=== PATIENT | female | born 1990 ===

== ENCOUNTER 2023-07-01 13:02 | Inpatient (IN) | payer OTHER, SELFPAY ==
--- NOTE | ~2023-07-01 | CT_ITS ---
EXAMINATION: CT HEAD WITHOUT CONTRAST CLINICAL INFORMATION: Change in mental status. COMPARISON: None available. TECHNIQUE: Contiguous axial imaging was performed from the skull base to vertex without intravenous administration of contrast. This CT examination was performed using dose optimization techniques as appropriate, variously including the following: *Automated exposure control *Adjustment of mA and/or kV according to patient size (this includes techniques or standardized protocols for targeted exams where dose is matched to indication/reason for exam; i.e. extremities or head) *Use of iterative reconstruction technique DLP: 646 mGy-cm FINDINGS: There is no acute intracranial hemorrhage. There is no evidence of acute/subacute cerebral or cerebellar infarction. There is no midline shift or mass effect. No extra-axial fluid collection. The orbits are symmetric and within normal limits. The mastoid air cells are clear. The visualized paranasal sinuses are well aerated. CT/CT head/brain wo IV con IMPRESSION: No acute intracranial pathology.
[2023-07-01 13:18] VITALS: BP 110/80; BP 118/90; PULSE 117; PULSE 86; RESP 16; TEMP 36.8; O2SAT 100; O2SAT 98; BMI 25.4
--- NOTE | 2023-07-01 13:25 | ECG_ITS ---
Test Reason : WEAKNESS Blood Pressure : / mmHG Vent. Rate : 110 BPM Atrial Rate : 110 BPM P-R Int : 150 ms QRS Dur : 072 ms QT Int : 296 ms P-R-T Axes : 070 076 040 degrees QTc Int : 400 ms Sinus tachycardia Low voltage QRS Nonspecific T wave abnormality Abnormal ECG No previous ECGs available Referred By: Gely Rubi Electronically Signed By:Román Fuller
--- NOTE | 2023-07-01 13:36 | ED_ITS ---
HPI - General Adult General Chief complaint: General Medical Stated complaint: NOT EATING FROM [facility],SEC 21 PER EMS Time Seen by Provider: 07/01/23 13:06 Source: patient, EMS and other Mode of arrival: EMS Limitations: other (very poor historian) History of Present Illness ED Provider: IVELISSE HPI narrative: 32 yo female with PMH of opiate use disorder, bipolar, ADHD, hypothyroidism from [place] has been there for about 1 year she is not a good historian is very agitated and keeps saying I don't know what you're asking me. Most of history from staff at bedside or notes. It looks like she has been hospitalized for the past 5 years and now is at [place] the notes state she is more wobbly with gait disturbances, agitated, not eating and drinking FTT for the past month but now tremors for the past week. There was a mention on 06/17 about med changes but unsure what medications she is using. She keeps asking for water on arrival. I asked staff if she was over drinking water and the staff note they have to push her to eat and drink at baseline. No AM medications this time. MD complaint: tremors, FTT, weakness, gait issues Onset (ago): week(s) (2+) Radiation: non-radiation Severity: moderate Quality: other Relieving factors: rest Exacerbating factors: movement Associated symptoms: other (not at baseline - withdrawn, agitation, poor PO intake) Treatments prior to arrival: none Related Data Allergies Allergy/AdvReac Type Severity Reaction Status Date / Time No Known Allergies Allergy Verified 07/01/23 13:21 Review of Systems 2 Review of Systems: ROS unable to be obtained due to altered mental status [facility] Past Medical History Source: old records reviewed Medical History ADHD Anemia FTT (failure to thrive) in adult Hypothyroidism Opiate use Bipolar 1 disorder Social History Social History (Updated 07/01/23 @ 13:38 by Gely Rubi DO) Alcohol intake: never Patient Tobacco Use Status: Former Tobacco user Smoked in Last 30 Days: No Advance Directives: No Advance Directives Information Provided: No Do you have a plan to hurt others: No Plan Patient : No Physical Exam ED Vital Signs: Vital Signs - 24 hr 07/01/23 13:18 Temperature 98.3 F Pulse Rate 117 H Respiratory Rate 16 Blood Pressure 118/90 H Pulse Oximetry 100 Oxygen Delivery Method Room Air BMI result Body Mass Index 25.4 Appearance: Alert. confused knows who she is and that she is at the hospital but keeps saying she doesn't understand. Mild acute distress. Eyes: Pupils equal, round and reactive to light. 5mm dilated ENT: Pharynx dry MM tongue fasciculations noted Neck: Normal inspection. Neck supple. CVS: tachycardic heart rate and rhythm. Pulses normal. Respiratory: No respiratory distress. Breath sounds normal. Abdomen: Soft and nontender. Skin: Skin warm and dry. pale skin color. Normal skin turgor. Extremities: No lower extremity edema. Neuro: moves all extremities, mild hyperreflexia, has 3 beat clonus in both legs, alert and oriented x 2 but very hard to follow and she is agitated Course Course Course Narrative: tongue fasciculations mild now tremors gone in hands after IV ativan less agitated Reevaluation(s) Reevaluation #1: per psychiatrist at [place] the patient's lithium was discharged and held as off 06/28 per psychiatrist but unsure why Dr. Saleem so if her lithium is 1.8 I am unsure what it was the last few weeks. Reevaluation #2: combination of medications that could cause serotonin syndrome together topiramate wellbutrin suboxone benadryl depakote seroquel Medications Administered Generic Name Dose Route Start Last Admin Trade Name Freq PRN Reason Stop Dose Admin Sodium Chloride 1,000 mls @ 125 mls/hr 07/01/23 15:00 07/01/23 15:45 Ns IVCONT 125 mls/hr .Q8H NOMAN Administration Discontinued Medications Generic Name Dose Route Start Last Admin Trade Name Freq PRN Reason Stop Dose Admin Sodium Chloride 1,000 mls @ 999 mls/hr 07/01/23 14:11 07/01/23 14:21 Ns IV 07/01/23 15:11 999 mls/hr .Q1H1M ONE Administration Lorazepam 1 mg 07/01/23 13:35 07/01/23 14:06 Lorazepam 2 Mg/Ml Vial IVPUSH 07/01/23 13:36 1 mg STAT STA Administration Medical Decision Making Medical Decision Making [facility] Narrative: 32 yo female with PMH of opiate use disorder, bipolar, ADHD, hypothyroidism here with worsening FTT and falls/behaviors changes and her clinical exam is concerning for autonomic agitation, clonus and change in mental status on multiple psychiatric meds the list that could cause serotonin syndrome together includes seroquel, wellbutrin, topiramate, suboxone, valproic acid. She needs labs, IV ativan, levels of lithium and depakote. I am going to start on fluids as well once I get her Na level back. CT head for any signs of intracranial mass ordered Differential Diagnosis Differential Diagnoses: The differential diagnosis associated with the presentation includes serotonin syndrome, dehydration, ICH, med reaction, anticholinergic Admission/Observation Consideration of admission/observation: Escalation of care including admission/observation considered pending repeat lithium level may need admission and CT head signed out to Dr. Tompkins repeat IV ativan ordered Consult Healthcare Provider Management of the patient was discussed with: Hospitalist (Dr. Paz states they will admit) and Special Education Director poison control repeat level in 2 hours then again in 4 hours for downward trend IVF maint ordered PRN ativan reassess Lab Data [facility] Lab Attestation statement: I reviewed the patient's lab results. 07/01/23 13:41 07/01/23 13:41 Labs: Lab Results 07/01/23 Range/Units 13:41 WBC 5.4 (4.8-10.8) X10*3/uL RBC 3.37 L (4.20-5.50) X10*6/uL Hgb 10.8 L (12.0-16.0) g/dl Hct 31.9 L (37.0-47.0) % MCV 94.7 (80.0-98.0) fL MCH 32.0 (27.0-33.0) pg MCHC 33.9 (31.0-35.0) g/dl RDW 13.7 (11.0-16.0) % Plt Count 199 (160-400) X10*3/uL MPV 9.0 L (9.4-12.3) fL Immature Gran % (Auto) 1.1 H (0.0-0.4) % Neut % (Auto) 59.5 (45-73) % Lymph % (Auto) 19.9 L (20-40) % [place] % (Auto) 18.7 H (2-11) % Eos % (Auto) 0.6 (0-4) % Baso % (Auto) 0.2 (0-2) % Lymph # (Auto) 1.1 L (1.2-4.9) X10*3/uL [place] # (Auto) 1.0 (0.1-1.2) X10*3/uL Eos # (Auto) 0.0 (0.0-0.4) X10*3/uL Baso # (Auto) 0.0 (0.0-0.2) X10*3/uL Abs Immat Gran (auto) 0.06 H (0.00-0.03) X10*3/uL Absolute Neuts (auto) 3.2 (2.0-8.3) x10*3/uL Absolute Nucleated RBC 0.000 (0.0-0.012) X10*3/uL Nucleated RBC % (auto) 0.0 (0.0-0.2) /100WBC Sodium 136 (135-145) mmol/L Potassium 3.7 (3.3-5.1) mmol/L Chloride 103 (96-108) mmol/L Carbon Dioxide 27 (22-29) mmol/L Anion Gap 10 L (12-20) BUN 29 H (9-16) mg/dL Creatinine 0.77 (0.5-1.4) mg/dL Estim Creat Clear Calc 79.2 Estimated GFR > 60 Random Glucose 108 (60-115) mg/dL Calcium 9.5 (8.4-10.2) mg/dL Magnesium 2.1 (1.6-2.6) mg/dL Total Bilirubin 0.4 (0.0-1.0) mg/dL Direct Bilirubin 0.2 (0.0-0.5) mg/dL AST 25 (5-31) U/L ALT 16 (0-31) U/L Alkaline Phosphatase 78 (39-117) U/L Total Protein 5.7 L (6.5-8.0) g/dL Albumin 3.2 L (3.5-5.0) g/dL Lipase < 4 L (8-78) U/L TSH 1.51 (0.32-4.0) uIU/mL Beta HCG, Quant < 2 mIU/mL Valproic Acid 90.0 (50.0-100.0) mcg/mL [place] 1.80 H* (0.60-1.20) mmol/L Independent Interpretation I performed an independent interpretation of an: EKG and CT Scan (normal no acute findings) Interpretation: Rate: 110 Rhythm: sinus tachycardia [place]: normal Normal P waves. Normal JAREN. Normal QRS complex. ST T wave : no BRANDY, inverted t waves V1-V2 qTC: 400 prior studies: no prior The study has been interpreted contemporaneously by me. . Radiology Impression Discussion of test interpretation with radiology: I have reviewed the radiologist's reading. Independent Historian Clinical information obtained from an independent historian. History obtained from or confirmed by: Other ([facility]) External Record Review External record reviewed: Outpatient record Critical Care Time Critical Care Time Critical Care Time: Yes Total Critical Care Time: 60 Attestation: review of records, IVF, ativan IV x 2 for presumed serotonin syndrome, admission, poison control call I attest to this time spent taking care of the patient Discharge Plan Discharge Clinical Impression: Resting tremor, Elevated lithium level, Adverse reaction to drug, Serotonin syndrome Patient Disposition: Admitted As Inpatient Print Language: Turkmen
[2023-07-01 13:47] LABS: MANUAL DIFF FLAG NO
[2023-07-01 13:49] LABS: Basophils Percent Auto 0.2 % (0-2); Eosinophils Percent Auto 0.6 % (0-4); Hematocrit 31.9 % (37.0-47.0); Hemoglobin 10.8 g/dl (12.0-16.0); Imm Gran Abs Auto 0.06 X10*3/uL (0.00-0.03); Imm Gran Pct Auto 1.1 % (0.0-0.4); Lymphocytes Absolute Auto 1.1 X10*3/uL (1.2-4.9); Lymphocytes Percent Auto 19.9 % (20-40); Mean Corpuscular HGB Conc 33.9 g/dl (31.0-35.0); Mean Corpuscular Volume 94.7 fL (80.0-98.0); Monocytes Percent Auto 18.7 % (2-11); Neutrophils Absolute Auto 3.2 x10*3/uL (2.0-8.3); Neutrophils Percent Auto 59.5 % (45-73); Platelet Count 199 X10*3/uL (160-400); Red Blood Count 3.37 X10*6/uL (4.20-5.50); Red Cell Distribution Width 13.7 % (11.0-16.0); White Blood Count 5.4 X10*3/uL (4.8-10.8)
[2023-07-01] MEDS: LORazepam 2 MG/ML VIAL 1 MG IVPUSH ×2 (14:06→16:29)
[2023-07-01 14:14] LABS: Alanine Aminotransferase 16 U/L (0-31); Albumin Level 3.2 g/dL (3.5-5.0); Alkaline Phosphatase 78 U/L (39-117); Anion Gap 10 (12-20); Aspartate Amino Transferase 25 U/L (5-31); Bilirubin Direct 0.2 mg/dL (0.0-0.5); Bilirubin Total 0.4 mg/dL (0.0-1.0); Blood Urea Nitrogen 29 mg/dL (9-16); Calcium 9.5 mg/dL (8.4-10.2); Carbon Dioxide 27 mmol/L (22-29); Chloride 103 mmol/L (96-108); Creatinine Clr Calc Pharmacy 79.2; Estimated Glomerular Filt Rate > 60; Glucose Random 108 mg/dL (60-115); Lipase < 4 U/L (8-78); Magnesium 2.1 mg/dL (1.6-2.6); Potassium 3.7 mmol/L (3.3-5.1); Sodium 136 mmol/L (135-145); Total Protein 5.7 g/dL (6.5-8.0)
[2023-07-01] MEDS: 0.9 % Sodium Chloride 1,000 ML 999 ML IV (14:21)
--- NOTE | 2023-07-01 14:25 | PC.NURSE ---
Critical [place] 1.8 rec, MD Rubi notified, pt medicated per MAR 1l IVF infusing per order. pt changed into hospital attire, resting quietly at this time 1:1 from [place] at bedside.
[2023-07-01 14:26] LABS: HCG Quantitative < 2 mIU/mL; TSH reflex Free T4 1.51 uIU/mL (0.32-4.0)
--- NOTE | 2023-07-01 14:48 | PC.NURSE ---
spoke with Rosa Maria at Poison Control, advised of critical lithium level of 1.8 recommendations are as follows: 1.) after initial fluid bolus, continue maintenance fluids at 1-1.5x the initial bolus 2.) repeat lithium level in 2 hours then every 2-4 hours until level is therapeutic Per Rosa Maria unless this is a recent adjustment in medication, increased lithium may be related to dehydration if PO intake has indeed been poor for the last month. Poison control will call to follow up on case. Spoke with nurse Oswald at [facility]: [phone], updated on pt status. MD Rubi advised
[2023-07-01] MEDS: 0.9 % Sodium Chloride 1,000 ML 125 ML IVCONT (15:45)
--- NOTE | 2023-07-01 16:11 | PC.NURSE ---
spoke with Dr. Payton psych provider from [place], advised of lithium level. stated that [place] level 1.8. sts that [place] was d/c'd on 06/28, sts that it was dc'd due pt poor po intake , and weight loss, stated that it was not therapeutic for pt. also sts that pt has been send out for OBGYN consults due to hx of HPV, as well as weight loss, intent was to rule out malignancy, however pt refuses exams. MD Rubi aware. advised of plan of care and poison control recommendations. Awaiting CT results, continuing fluids. sitter at bedside
[2023-07-01 16:13] LABS: Ammonia 19 umol/L (13-55)
[2023-07-01 16:33] LABS: Lithium 1.67 mmol/L (0.60-1.20)
--- NOTE | 2023-07-01 17:02 | PC.NURSE ---
spoke with pt mother sacha [phone] requests to speak with pt once she is awake
--- NOTE | 2023-07-01 17:03 | P.CNPS_ITS ---
History of Present Illness Date of Service: 07/01/2023 Chief Complaint: Filer toxicity Discussed with referring provider: Yes Sources of Information: patient interviewed, chart reviewed and crisis/core team assessment reviewed HPI Narrative: Ms. Sherman is a 32 year-old woman with hx of schizoaffective disorder, BPD, opiod use disorder who was was sent from [facility] psychiatric unit [facility] due to tremors, unsteady gait. In the ED, lithium level 1.80, hours after down to 1.67. CBC with normocytic anemia, no leukocytocis. CMP with no electrolyte imbalances. BUN slightly elevated 29, Cr 0.77, creatinine clearance 77. TSH 1.51. EKG tachycardia, low voltage QRS, non specific T wave abnormality. Pt also on depakote- depakote level 90, ammonia level 19. Pt on several psychotropic medication, but note that she is NOT on serotonergic agents. In addition, pt is on suboxone, wellbutrin, paliperidone, seroquel, thorazine. On exam- pt presents as anxious, asking to help her. when asked in what way she needs help she states I'm cold. Visible shock-like movement in appear extremities. On exam she does seem to have mild myoclonic movement. No pipe rigidity noted. No cogwheel. Pt is with staff from [facility] who has know pt for several months, who reports pt at baseline tends to be anxious but shakiness has worsened in past week, and her gait is more unsteady. mentation pickett, staff reports pt appears close to her baseline which seems to be limited. Will obtain more collateral information from her treating psychiatrist at [facility] Dr. Saleem. Note that pt has been at [facility] ([facility] psych unit) for several months, has a bed there and once medically clear and stable, should return to their unit NOT ANY OTHER PSYCH UNIT. She also has a guardian and [place]. [facility] Medical History ADHD Anemia FTT (failure to thrive) in adult Hypothyroidism Opiate use Bipolar 1 disorder Diagnostics Vital Signs (24Hr): Vital Signs - 24 hr 07/01/23 13:18 Temperature 98.3 F Pulse Rate 117 H Respiratory Rate 16 Blood Pressure 118/90 H Pulse Oximetry 100 Oxygen Delivery Method Room Air BMI result Body Mass Index 25.4 Labs 07/01/23 13:41 07/01/23 13:41 Labs: Laboratory Results - last 48 hr 07/01/23 07/01/23 13:41 16:02 WBC 5.4 RBC 3.37 L Hgb 10.8 L Hct 31.9 L MCV 94.7 MCH 32.0 MCHC 33.9 RDW 13.7 Plt Count 199 MPV 9.0 L Immature Gran % (Auto) 1.1 H Neut % (Auto) 59.5 Lymph % (Auto) 19.9 L [place] % (Auto) 18.7 H Eos % (Auto) 0.6 Baso % (Auto) 0.2 Lymph # (Auto) 1.1 L [place] # (Auto) 1.0 Eos # (Auto) 0.0 Baso # (Auto) 0.0 Abs Immat Gran (auto) 0.06 H Absolute Neuts (auto) 3.2 Absolute Nucleated RBC 0.000 Nucleated RBC % (auto) 0.0 Sodium 136 Potassium 3.7 Chloride 103 Carbon Dioxide 27 Anion Gap 10 L BUN 29 H Creatinine 0.77 Estim Creat Clear Calc 79.2 Estimated GFR > 60 Random Glucose 108 Calcium 9.5 Magnesium 2.1 Total Bilirubin 0.4 Direct Bilirubin 0.2 AST 25 ALT 16 Alkaline Phosphatase 78 Ammonia 19 Total Protein 5.7 L Albumin 3.2 L Lipase < 4 L TSH 1.51 Beta HCG, Quant < 2 Valproic Acid 90.0 [place] 1.80 H* 1.67 H* Imaging Radiology Impressions: ITS Impressions Head CT 07/01/23 15:29 IMPRESSION: No acute intracranial pathology. Mental Status Exam Mental Status Exam Narrative: pt in bed, somewhat anxious but in no acute distress. She reports feeling cold and tired. visible clonus alert, oriented to place, month, year insight/judgment: limited x 2. Medications Medications Current Medications Sodium Chloride (Ns) 1,000 mls @ 125 mls/hr IVCONT .Q8H NOMAN Last Admin: 07/01/23 15:45 Dose: 125 mls/hr Allergies Allergies Allergy/AdvReac Type Severity Reaction Status Date / Time No Known Allergies Allergy Verified 07/01/23 13:21 Assessment & Plan Assessment & Plan (1) Filer toxicity: Status: Acute Code(s): T56.891A - Toxic effect of other metals, accidental (unintentional), initial encounter Plan Pt presents with myoclonic movements, unsteady gait. [place] level supratherapeutic. Apparently, lithium had been stopped 2-3 days prior to admission to ED- suspect much higher level. No hyperthermia, no rigidity nor cog wheel on exam. No elevation in WBC. despite BUN elevated, creatinine clearance 77, GAF>60. serial lithium levels/bmp have been ordered. Pt given IV fluids. No significant cardiac effects noted, no qtc prolongation nor bradycardia or arrythmias. No TSH abnormalities. Calcium is normal, may not need to check PTH (lithium mimics calcium and binds in calcium sensing receptors in parathyroid). PLAN 1. Continue suboxone to avoid opiod withdrawal symptoms. For now- safe to hold depakote, topamax, thorazine, seroquel and ambien. She did have per documentation from [facility]- paliperidone invega 234mg IM on 06/29. 2.continue to follow resolution of clonus, labs abnormalities (lithium level, renal function) Total time managing care of this patient today ____ minutes.
--- NOTE | 2023-07-01 17:08 | PC.NURSE ---
spoke with poison control advised of repeat [place] level of 1.67. Poison Control recommends the followin.)repeat in 2 hours, if level is still trending downward, recommend rechecking in 4 hours. 2.) continue maintenance fluids MD Tompkins notified
--- NOTE | 2023-07-01 17:41 | PHA.MEDREC ---
Pharmacy Consult ? Medication Reconciliation Pharmacy has completed the medication reconciliation using med list from [facility]. On list, chlorpromazine was entered in 3 times as 50 mg tablets tid prn, 50 ml IM q6h prn and 50 mg IM tid prn. Clonidine was entered as 0.1 mg q8h prn hypertension.
[2023-07-01 17:46] VITALS: BP 94/60; PULSE 94; RESP 20; TEMP 37.1; O2SAT 98
--- NOTE | 2023-07-01 18:09 | P.HPHOSP_ITS ---
History of Present Illness Date of Service: 07/01/23 <CLAUDIA Valverde - Last Filed: 07/01/23 19:29> Attending physician on admission: Lyudmila Paz <CLAUDIA Valverde - Last Filed: 07/01/23 19:29> Chief Complaint: AMS, agitation, ataxia <CLAUDIA Valverde - Last Filed: 07/01/23 19:29> Pt is a 32-year-old female with a PMH significant for?hypothyroidism, opiate use disorder, ADHD, and bipolar disorder who presents to the ED from [facility]?for evaluation unsteadiness on feet and tremors for the past week. Patient is somnolent and barely arousable at time of interview and exam, incapable of answering questions. HPI is thus obtained from [facility] staff who was at bedside and chart and provider review. Patient has apparently been in and out of psychiatric institutions for many years; has been hospitalized at [facility] for at least 1 year. 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 Has also been unsteady on her feet, and complaining on and off of lower abdominal pain. Unclear whether or not she has been experiencing nausea and vomiting. Patient apparently has severe attention seeking behaviors, and will act out if she feels she is not receiving enough attention. Apparently has been having difficulty eating and drinking past few days. Patient's lithium was held and d/c'd on 06/28. Psychiatry was consulted in the ED who felt patient was experiencing lithium toxicity rather than serotonin syndrome. In the ED pt was tachycardic up to 117 with slightly elevated BP of 118/90. No fever Labs were significant for H&H 10.8/31.9, BUN 29, total protein 5.7, albumin 3.2, and initial lithium dose 1.80 with repeat down trending to 1.67. CT?of head found no acute intracranial pathology. EKG demonstrated sinus tachycardia of 110 with nonspecific T-wave inversions in V1 and V2 without evidence of significant ST elevations or depressions. Pt was treated with lorazepam and IVF. Pt will be admitted to the hospital for treatment and further evaluation of lithium toxicity. <CLAUDIA Valverde - Last Filed: 07/01/23 19:29> Review of Systems 2 Review of Systems: Unable to obtain due to patient's mentation <CLAUDIA Valverde - Last Filed: 07/01/23 19:29> [facility] Medical History: Medical History ADHD Anemia FTT (failure to thrive) in adult Hypothyroidism Opiate use Bipolar 1 disorder <CLAUDIA Valverde - Last Filed: 07/01/23 19:29> Social History: Social History Alcohol intake: never Patient Tobacco Use Status: Former Tobacco user Smoked in Last 30 Days: No Advance Directives: No Advance Directives Information Provided: No Do you have a plan to hurt others: No Plan Patient : No <CLAUDIA Valverde - Last Filed: 07/01/23 19:29> Meds Allergies/Adverse reactions: Allergies Allergy/AdvReac Type Severity Reaction Status Date / Time No Known Allergies Allergy Verified 07/01/23 13:21 <CLAUDIA Valverde - Last Filed: 07/01/23 19:29> Active Medications: Current Medications Sodium Chloride (Ns) 1,000 mls @ 125 mls/hr IVCONT .Q8H NOMAN Last Admin: 07/01/23 15:45 Dose: 125 mls/hr <CLAUDIA Valverde - Last Filed: 07/01/23 19:29> Home medications: Home Medications ?Medication ?Instructions ?Recorded ?Confirmed ?Last Taken ?Type acetaminophen 325 mg tablet 650 mg PO Q6H PRN Pain, Mild 07/01/23 07/01/23 Unknown History aluminum-mag hydroxide-simethicone 30 ml PO Q6H PRN Heartburn 07/01/23 07/01/23 Unknown History 400 mg-400 mg-40 mg/5 mL oral susp (Mylanta Maximum Strength) benztropine 1 mg tablet 1 mg PO BID 07/01/23 07/01/23 Unknown History bisacodyl 10 mg rectal suppository 10 mg CA DAILY PRN Constipation 07/01/23 07/01/23 Unknown History bisacodyl 5 mg tablet,delayed 10 mg PO DAILY 07/01/23 07/01/23 Unknown History release buprenorphine 2 mg-naloxone 0.5 mg 1 film buccal DAILY 07/01/23 07/01/23 Unknown History sublingual film (Suboxone) buprenorphine 4 mg-naloxone 1 mg 1 film buccal BEDTIME 07/01/23 07/01/23 Unknown History sublingual film (Suboxone) bupropion HCl 150 mg 24 hr tablet, 150 mg PO DAILY 07/01/23 07/01/23 Unknown History extended release chlorpromazine 25 mg/mL injection 50 mg IM Q6H PRN Agitation 07/01/23 07/01/23 Unknown History solution chlorpromazine 25 mg/mL injection 50 mg IM TID PRN Agitation 07/01/23 07/01/23 Unknown History solution chlorpromazine 50 mg tablet 50 mg PO TID PRN Agitation 07/01/23 07/01/23 Unknown History clonazepam 1 mg tablet 1 mg PO DAILY 07/01/23 07/01/23 Unknown History clonidine HCl 0.1 mg tablet 0.1 mg PO Q8H PRN Hypertension 07/01/23 07/01/23 Unknown History diphenhydramine HCl 25 mg capsule 25 mg PO Q8H PRN Anxiety 07/01/23 07/01/23 Unknown History divalproex 500 mg tablet,delayed 1,000 mg PO BEDTIME 07/01/23 07/01/23 Unknown History release divalproex 500 mg tablet,delayed 500 mg PO QAM 07/01/23 07/01/23 Unknown History release ibuprofen 800 mg tablet 800 mg PO Q8H PRN Pain, Moderate 07/01/23 07/01/23 Unknown History levothyroxine 25 mcg tablet 25 mcg PO DAILY@0600 07/01/23 07/01/23 Unknown History melatonin 3 mg tablet 6 mg PO BEDTIME 07/01/23 07/01/23 Unknown History methylphenidate HCl 18 mg 18 mg PO DAILY 07/01/23 07/01/23 Unknown History tablet,extended release 24 hr multivitamin 1 tab PO DAILY 07/01/23 07/01/23 Unknown History nicotine (polacrilex) 4 mg gum 4 mg buccal Q2H PRN Smoking 07/01/23 07/01/23 Unknown History Cessation nicotine 21 mg/24 hr daily 1 patch transdermal DAILY 07/01/23 07/01/23 Unknown History transdermal patch paliperidone palmitate 234 mg/1.5 234 mg IM QMONTH 07/01/23 07/01/23 Unknown History mL intramuscular syringe phenazopyridine 200 mg tablet 200 mg PO TID PRN URINARY 07/01/23 07/01/23 Unknown History DISCOMFORT polyethylene glycol 3350 17 17 g PO DAILY PRN Constipation 07/01/23 07/01/23 Unknown History gram/dose oral powder quetiapine 100 mg tablet 100 mg PO BEDTIME PRN Insomnia 07/01/23 07/01/23 Unknown History quetiapine 50 mg tablet 50 mg PO BID 07/01/23 07/01/23 Unknown History topiramate 25 mg tablet 25 mg PO BID 07/01/23 07/01/23 Unknown History zolpidem 5 mg tablet 5 mg PO BEDTIME 07/01/23 07/01/23 Unknown History <CLAUDIA Valverde - Last Filed: 07/01/23 19:29> Physical Exam 2 Vital Signs and Narrative: Vital Signs: Last Vital Signs Temp 98.7 F 07/01/23 17:46 Pulse 94 07/01/23 17:46 Resp 20 07/01/23 17:46 BP 94/60 07/01/23 17:46 Pulse Ox 98 07/01/23 17:46 O2 Del Method Room Air 07/01/23 17:46 BMI result Body Mass Index 25.4 <CLAUDIA Valverde Last Filed: 07/01/23 19:29> General: Somnolent, arousable but not opening eyes and unable to answer questions, in no acute distress Resp: CTA bilaterally CVS: S1, S2, tachycardic, regular rhythm GI: +BS, NT, no distention Skin: Warm, dry Neuro: Cranial nerves II-XII grossly intact bilaterally. Motor grossly intact bilaterally Extremities: No edema <CLAUDIA Valverde - Last Filed: 07/01/23 19:29> Results Labs CBC and Chem 7: 07/01/23 13:41 07/01/23 13:41 <CLAUDIA aVlverde Last Filed: 07/01/23 19:29> Labs: Laboratory Results - last 24 hr 07/01/23 07/01/23 13:41 16:02 MCV 94.7 MCH 32.0 MCHC 33.9 RDW 13.7 Plt Count 199 MPV 9.0 L Immature Gran % (Auto) 1.1 H Neut % (Auto) 59.5 Lymph % (Auto) 19.9 L [place] % (Auto) 18.7 H Eos % (Auto) 0.6 Baso % (Auto) 0.2 Lymph # (Auto) 1.1 L [place] # (Auto) 1.0 Eos # (Auto) 0.0 Baso # (Auto) 0.0 Abs Immat Gran (auto) 0.06 H Absolute Neuts (auto) 3.2 Absolute Nucleated RBC 0.000 Nucleated RBC % (auto) 0.0 Anion Gap 10 L Estim Creat Clear Calc 79.2 Estimated GFR > 60 Random Glucose 108 Calcium 9.5 Magnesium 2.1 Total Bilirubin 0.4 Direct Bilirubin 0.2 AST 25 ALT 16 Alkaline Phosphatase 78 Ammonia 19 Total Protein 5.7 L Albumin 3.2 L Lipase < 4 L TSH 1.51 Beta HCG, Quant < 2 Valproic Acid 90.0 [place] 1.80 H* 1.67 H* <CLAUDIA Valverde - Last Filed: 07/01/23 19:29> Imaging Radiologist's Impressions: Impressions Head CT 07/01/23 15:29 IMPRESSION: No acute intracranial pathology. <CLAUDIA Valverde - Last Filed: 07/01/23 19:29> Assessment and Plan (1) Elevated lithium level: Status: Acute <CLAUDIA Valverde - Last Filed: 07/01/23 19:29> Pt is a 32-year-old female with a PMH significant for?hypothyroidism, opiate use disorder, ADHD, and bipolar disorder who presents to the ED from [facility]?for evaluation unsteadiness on feet and tremors for the past week. Pt was treated with lorazepam and IVF. Pt will be admitted to the hospital for treatment and further evaluation of lithium toxicity. Acute on chronic lithium toxicity Patient with tremors, ataxia, altered mental status [place] levels 1.8 at time of presentation with repeat 1.67 [place] stopped 2 days prior on 06/28 Will treat with aggressive IV hydration @150 mls/hr Hold Depakote Will recheck lithium levels at 22:00 Psychiatry consult Monitor on telemetry Mood disorder Hold lithium, Depakote Continue all other mood stabilizers Opiate use disorder Continue Suboxone Hypothyroidism Continue levothyroxine Full Code Attending:?Dr. Valdivia DVT Prophylaxis: Lovenox Pt will require a hospitalization of at least two nights for treatment of?acute on chronic lithium toxicity with aggressive IV F hydration, close monitoring of mentation, labs, and cardiac function. <CLAUDIA Valverde - Last Filed: 07/01/23 19:29> Pt is a 32-year-old female with a PMH significant for?hypothyroidism, opiate use disorder, ADHD, and bipolar disorder who presents to the ED from [facility]?for evaluation unsteadiness on feet and tremors for the past week. Pt was treated with lorazepam and IVF. Pt will be admitted to the hospital for treatment and further evaluation of lithium toxicity. Acute on chronic lithium toxicity Patient with tremors, ataxia, altered mental status [place] levels 1.8 at time of presentation with repeat 1.67 [place] stopped 2 days prior on 06/28 Will treat with aggressive IV hydration @150 mls/hr Hold Depakote Will recheck lithium levels in am Psychiatry consult Monitor on telemetry Mood disorder Hold lithium, Depakote Continue all other mood stabilizers Opiate use disorder Continue Suboxone Hypothyroidism Continue levothyroxine Full Code Attending:?Dr. Valdivia DVT Prophylaxis: Lovenox Pt will require a hospitalization of at least two nights for treatment of?acute on chronic lithium toxicity with aggressive IV F hydration, close monitoring of mentation, labs, and cardiac function. <Aries Valdivia MD - Last Filed: 07/01/23 19:30> Quality Stroke Does the patient have a stroke diagnosis?: No <CLAUDIA Valverde - Last Filed: 07/01/23 19:29> VTE Prior VTE?: No <CLAUDIA Valverde - Last Filed: 07/01/23 19:29> VTE Risk Level:: Medical - moderate - high <CLAUDIA Valverde - Last Filed: 07/01/23 19:29> VTE Device Contraindication: Treatment Not Indicated <CLAUDIA Valverde - Last Filed: 07/01/23 19:29> VTE Drug Contraindication: N/A - Med Ordered <CLAUDIA Valverde - Last Filed: 07/01/23 19:29>
--- NOTE | 2023-07-01 18:25 | PC.NURSE ---
CLAUDIA Valdes at bedside
--- NOTE | 2023-07-01 19:32 | MHC.EDTECH ---
Mother of Pt. would like an update. [phone]
[2023-07-01 21:14] LABS: Lithium 1.58 mmol/L (0.60-1.20)
[2023-07-01] MEDS: Enoxaparin Sodium 40 MG/0.4 ML SYRINGE SUBCUT (21:36)
[2023-07-01] MEDS: Benztropine Mesylate 1 MG TABLET PO (21:36)
[2023-07-01] MEDS: Buprenorphine/Naloxone 4/1 mg FILM 1 FILM BUCCAL (21:36)
[2023-07-01] MEDS: Topiramate 25 MG TABLET PO (21:36)
[2023-07-01] MEDS: Zolpidem Tartrate 5 MG TABLET PO (21:36)
[2023-07-01] MEDS: QUEtiapine Fumarate 50 MG TABLET PO (21:36)
--- NOTE | 2023-07-01 22:13 | MHC.EDTECH ---
Patient resting quietly. Respirations even and unlaborated.
--- NOTE | 2023-07-01 22:32 | PC.NURSE ---
This RN spoke with poison control at this time, poison control recommends NS to be running at 200ml/order, Dr. Valdivia made aware and states he will change the order. Patient is currently awake and resting on stretcher, when asked her name patient is not answering this RN and when asked where she is and what today is patient states she does not know. No tremors noted. Margret RN at [facility] states that patient typically presents alert and oriented, able to answer questions appropriately but states that at times her mental status does fluctuate.
--- NOTE | 2023-07-01 23:59 | PC.NURSE ---
pt pulled out IV. placed new iv in left ac
[2023-07-02] MEDS: 0.9 % Sodium Chloride 1,000 ML 200 ML IVCONT ×3 (00:58→20:25)
[2023-07-02 01:15] VITALS: BP 116/78; PULSE 100; RESP 16; TEMP 36.7; O2SAT 98
--- NOTE | 2023-07-02 02:16 | MHC.EDTECH ---
belongings in locker 11
[2023-07-02 03:45] LABS: Lithium 1.62 mmol/L (0.60-1.20)
--- NOTE | 2023-07-02 04:47 | PC.NURSE ---
this rn noted resting tremors. notified MD Valdivia and poison control. MD at bedside assessing PT . tremors not present during his physical assessment.
--- NOTE | 2023-07-02 05:09 | PC.NURSE ---
Notifie provider of pt lack or urine output. plan is to increase fluids to 250mls/hrs.
[2023-07-02 05:18] LABS: Lithium 1.49 mmol/L (0.60-1.20)
[2023-07-02] MEDS: 0.9 % Sodium Chloride 1,000 ML 250 ML IVCONT ×2 (05:58→09:54)
--- NOTE | 2023-07-02 06:18 | PC.NURSE ---
relations director/Sitter. noted pt to be tremorous en route to bathroom. Skip at bedside again. PT resting in bed no visible tremors, or clonus noted.
--- NOTE | 2023-07-02 06:19 | PM.EVENT ---
Event Note Date of Service: 07/02/23 Event Note: Talked to poison control. Will increase fluids to 250 cc an hour. Patient without resting tremor, clonus or nystagmus. Unknown baseline mentation Time Spent With Patient Time: Total time managing care of this patient today ____ minutes.
[2023-07-02 06:21] VITALS: BP 106/70; PULSE 98; RESP 12; TEMP 36.3; O2SAT 96
[2023-07-02 06:23] LABS: Appearance Urine Cloudy; Color Urine Dark Yellow; Glucose Urine UA Negative (Negative); Leukocyte Esterase Urine Moderate (2+) (Negative); Nitrite Urine Positive (Negative); Specific Gravity - Urine 1.025 (1.005-1.025); UMIC TRIGGER UACC YES; Urine Blood Negative (Negative); Urine Ketones 15 mg/dL (Negative); Urine Protein Trace mg/dL (Neg-Trace)
[2023-07-02 06:28] LABS: Bacteria Urine 4+ (None Seen); RBC Urine 0-2 /HPF (0-2); UACC Culture Trigger YES
[2023-07-02] MEDS: Levothyroxine Sodium 25 MCG TABLET PO (06:37)
--- NOTE | 2023-07-02 06:41 | PC.NURSE ---
notified DR. Valdivia that PT is tremorous when grabbing her arms, pt also shaking while hold water cup. Skip placed consult for renal for dialysis
[2023-07-02 07:52] VITALS: BP 117/85; PULSE 104; RESP 14; O2SAT 98
--- NOTE | 2023-07-02 08:55 | P.CONNP_ITS ---
History of Present Illness Reason for Consult Consult date: 07/02/23 Chief Complaint Chief complaint: [place] toxicity History of Present Illness Narrative: 32-year-old female with a PMH significant for?hypothyroidism, opiate use disorder, ADHD, and bipolar disorder presented to the ER from [facility]?for evaluation unsteadiness on feet and tremors for the past week. Patient is incapable of answering questions appropriately. Patient has apparently been in and out of psychiatric institutions for many years; has been hospitalized at [facility] for at least 1 year. 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 Has also been unsteady on her feet, and complaining on and off of lower abdominal pain. Unclear whether or not she has been experiencing nausea and vomiting. Patient apparently has severe attention seeking behaviors, and will act out if she feels she is not receiving enough attention. Apparently has been having difficulty eating and drinking past few days. Patient's lithium was held and d/c'd on 06/28. In the ED pt was tachycardic up to 117 with slightly elevated BP of 118/90. No fever Labs were significant for H&H 10.8/31.9, BUN 29, total protein 5.7, albumin 3.2, and initial lithium dose 1.80 with repeat down trending to 1.67. CT?of head found no acute intracranial pathology. EKG demonstrated sinus tachycardia of 110 with nonspecific T-wave inversions in V1 and V2 without evidence of significant ST elevations or depressions. Pt was treated with lorazepam and IVF. Pt was admitted to the hospital for treatment and further evaluation of lithium toxicity. Nephrology has been consulted to assist in her clinical care during her current hospital stay Review of Systems Review of Systems Yes Unobtainable due to mental condition [facility] Past Medical History Medical History ADHD Anemia FTT (failure to thrive) in adult Hypothyroidism Opiate use Bipolar 1 disorder Social History Social History Alcohol intake: never Patient Tobacco Use Status: Former Tobacco user Smoked in Last 30 Days: No Advance Directives: No Advance Directives Information Provided: No Do you have a plan to hurt others: No Plan Patient : No Meds Allergies Allergy/AdvReac Type Severity Reaction Status Date / Time No Known Allergies Allergy Verified 07/01/23 13:21 Active Medications: Current Medications Acetaminophen (Acetaminophen 325 Mg Tablet) 650 mg PO Q6H PRN PRN Reason: Pain, Mild (Pain Scale 1-3) Al Hydroxide/Mg Hydroxide (Magnesium Hydrox/Alum Hydrox 30 Ml Oral.Susp) 30 ml PO Q6H PRN PRN Reason: Heartburn Benztropine Mesylate (Benztropine Mesylate 1 Mg Tablet) 1 mg PO BID [facility] Last Admin: 07/01/23 21:36 Dose: 1 mg Bisacodyl (Bisacodyl 5 Mg Tablet.Dr) 10 mg PO DAILY [facility] Bisacodyl (Bisacodyl 10 Mg Supp.Rect) 10 mg [place] DAILY PRN PRN Reason: Constipation Buprenorphine/Naloxone (Buprenorphine/Naloxone 2/0.5mg Film) 1 film SUBLINGUAL DAILY [facility] Buprenorphine/Naloxone (Buprenorphine/Naloxone 4/1 Mg Film) 1 film BUCCAL BEDTIME [facility] Last Admin: 07/01/23 21:36 Dose: 1 film Bupropion HCl (Bupropion Hcl Xl 150 Mg Tab.Er.24h) 150 mg PO DAILY [facility] Chlorpromazine HCl (Chlorpromazine Hcl 25 Mg/Ml Ampul) 50 mg IM Q6H PRN PRN Reason: Agitation Chlorpromazine HCl (Chlorpromazine Hcl 25 Mg/Ml Ampul) 50 mg IM TID PRN PRN Reason: Agitation Chlorpromazine HCl (Chlorpromazine Hcl 25 Mg Tablet) 50 mg PO TID PRN PRN Reason: Agitation Clonazepam (Clonazepam 1 Mg Tablet) 1 mg PO DAILY [facility] Clonidine HCl (Clonidine Hcl 0.1 Mg Tablet) 0.1 mg PO Q8H PRN; Protocol PRN Reason: Hypertension Diphenhydramine HCl (Diphenhydramine Hcl 25 Mg Capsule) 25 mg PO Q8H PRN PRN Reason: Anxiety Enoxaparin Sodium (Enoxaparin Sodium 40 Mg/0.4 Ml Syringe) 40 mg SUBCUT Q24H [facility] Last Admin: 07/01/23 21:36 Dose: 40 mg Sodium Chloride (Ns) 1,000 mls @ 250 mls/hr IVCONT .Q4H [facility] Last Admin: 07/02/23 05:58 Dose: 250 mls/hr Levothyroxine Sodium (Levothyroxine Sodium 25 Mcg Tablet) 25 mcg PO DAILY@0600 [facility] Last Admin: 07/02/23 06:37 Dose: 25 mcg Lorazepam (Lorazepam 1 Mg Tablet) 1 mg PO Q6H PRN PRN Reason: anxiety/restlessness Multivitamins/Vitamin C (Multivitamin Tablet) 1 tab PO DAILY [facility] Nicotine (Nicotine 21 Mg Patch.Td24) 21 mg TRANSDERMA DAILY [facility] Nicotine Polacrilex (Nicotine Polacrilex 2 Mg Gum) 4 mg BUCCAL Q2H PRN PRN Reason: Smoking Cessation Non-Formulary Medication (Methylphenidate Hcl) 18 mg PO DAILY [facility] Phenazopyridine HCl (Phenazopyridine Hcl 200 Mg Tablet) 200 mg PO TID PRN PRN Reason: URINARY DISCOMFORT Polyethylene Glycol (Polyethylene Glycol 3350 17 Gm Powd.Pack) 17 gm PO DAILY PRN PRN Reason: Constipation Quetiapine Fumarate (Quetiapine Fumarate 50 Mg Tablet) 50 mg PO BID [facility] Last Admin: 07/01/23 21:36 Dose: 50 mg Quetiapine Fumarate (Quetiapine Fumarate 100 Mg Tablet) 100 mg PO BEDTIME PRN PRN Reason: Insomnia Sodium Chloride (0.9 % Sodium Chloride Flush 3 Ml Syringe) 3 ml IVFLUSH QSHIFT [facility] Last Admin: 07/02/23 03:19 Dose: Not Given Topiramate (Topiramate 25 Mg Tablet) 25 mg PO BID [facility] Last Admin: 07/01/23 21:36 Dose: 25 mg Zolpidem Tartrate (Zolpidem Tartrate 5 Mg Tablet) 5 mg PO BEDTIME [facility] Last Admin: 07/01/23 21:36 Dose: 5 mg Home Medications ?Medication ?Instructions ?Recorded ?Confirmed ?Last Taken ?Type acetaminophen 325 mg tablet 650 mg PO Q6H PRN Pain, Mild 07/01/23 07/01/23 Unknown History aluminum-mag hydroxide-simethicone 30 ml PO Q6H PRN Heartburn 07/01/23 07/01/23 Unknown History 400 mg-400 mg-40 mg/5 mL oral susp (Mylanta Maximum Strength) benztropine 1 mg tablet 1 mg PO BID 07/01/23 07/01/23 Unknown History bisacodyl 10 mg rectal suppository 10 mg [place] DAILY PRN Constipation 07/01/23 07/01/23 Unknown History bisacodyl 5 mg tablet,delayed 10 mg PO DAILY 07/01/23 07/01/23 Unknown History release buprenorphine 2 mg-naloxone 0.5 mg 1 film buccal DAILY 07/01/23 07/01/23 Unknown History sublingual film (Suboxone) buprenorphine 4 mg-naloxone 1 mg 1 film buccal BEDTIME 07/01/23 07/01/23 Unknown History sublingual film (Suboxone) bupropion HCl 150 mg 24 hr tablet, 150 mg PO DAILY 07/01/23 07/01/23 Unknown History extended release chlorpromazine 25 mg/mL injection 50 mg IM Q6H PRN Agitation 07/01/23 07/01/23 Unknown History solution chlorpromazine 25 mg/mL injection 50 mg IM TID PRN Agitation 07/01/23 07/01/23 Unknown History solution chlorpromazine 50 mg tablet 50 mg PO TID PRN Agitation 07/01/23 07/01/23 Unknown History clonazepam 1 mg tablet 1 mg PO DAILY 07/01/23 07/01/23 Unknown History clonidine HCl 0.1 mg tablet 0.1 mg PO Q8H PRN Hypertension 07/01/23 07/01/23 Unknown History diphenhydramine HCl 25 mg capsule 25 mg PO Q8H PRN Anxiety 07/01/23 07/01/23 Unknown History divalproex 500 mg tablet,delayed 1,000 mg PO BEDTIME 07/01/23 07/01/23 Unknown History release divalproex 500 mg tablet,delayed 500 mg PO QAM 07/01/23 07/01/23 Unknown History release ibuprofen 800 mg tablet 800 mg PO Q8H PRN Pain, Moderate 07/01/23 07/01/23 Unknown History levothyroxine 25 mcg tablet 25 mcg PO DAILY@0600 07/01/23 07/01/23 Unknown History melatonin 3 mg tablet 6 mg PO BEDTIME 07/01/23 07/01/23 Unknown History methylphenidate HCl 18 mg 18 mg PO DAILY 07/01/23 07/01/23 Unknown History tablet,extended release 24 hr multivitamin 1 tab PO DAILY 07/01/23 07/01/23 Unknown History nicotine (polacrilex) 4 mg gum 4 mg buccal Q2H PRN Smoking 07/01/23 07/01/23 Unknown History Cessation nicotine 21 mg/24 hr daily 1 patch transdermal DAILY 07/01/23 07/01/23 Unknown History transdermal patch paliperidone palmitate 234 mg/1.5 234 mg IM QMONTH 07/01/23 07/01/23 Unknown History mL intramuscular syringe phenazopyridine 200 mg tablet 200 mg PO TID PRN URINARY 07/01/23 07/01/23 Unknown History DISCOMFORT polyethylene glycol 3350 17 17 g PO DAILY PRN Constipation 07/01/23 07/01/23 Unknown History gram/dose oral powder quetiapine 100 mg tablet 100 mg PO BEDTIME PRN Insomnia 07/01/23 07/01/23 Unknown History quetiapine 50 mg tablet 50 mg PO BID 07/01/23 07/01/23 Unknown History topiramate 25 mg tablet 25 mg PO BID 07/01/23 07/01/23 Unknown History zolpidem 5 mg tablet 5 mg PO BEDTIME 07/01/23 07/01/23 Unknown History Physical Exam Vital Signs: Last Vital Signs Temp 97.4 F 07/02/23 06:21 Pulse 104 H 07/02/23 07:52 Resp 14 07/02/23 07:52 BP 117/85 07/02/23 07:52 Pulse Ox 98 07/02/23 07:52 O2 Del Method Room Air 07/02/23 07:52 BMI result Body Mass Index 25.4 Const General: no acute distress Neck Neck: Yes supple Resp Auscultation: diminished lung sounds Cardio Rate: regular rate GI Palpation (GI): Soft to palpation Neuro General: moves all extremities Results Lab Results 07/01/23 13:41 07/01/23 13:41 Lab results: Chemistry 07/01/23 13:41 Sodium 136 Potassium 3.7 Carbon Dioxide 27 BUN 29 H Creatinine 0.77 Calcium 9.5 Hematology 07/01/23 13:41 WBC 5.4 Hgb 10.8 L Plt Count 199 Urinalysis 07/02/23 06:15 Urine Color Dark Yellow Urine Appearance Cloudy Urine pH 6.0 Ur Specific [place] 1.025 Urine Protein Trace Urine Glucose (UA) Negative Urine Ketones 15 Urine Blood Negative Urine Nitrite Positive H Ur Leukocyte Esterase Moderate (2+) H Urine RBC 0-2 Urine WBC 11-20 H Ur Squamous Epith Cells 11-20 Hyaline Casts 3-5 Assessment and Plan (1) Tamms toxicity: Qualifiers: Encounter type: sequela Injury intent: accidental or unintentional Q ualified Code(s): T56.891S - Toxic effect of other metals, accidental (unintentional), sequela Status: Acute Plan Renal functions normal; Electrolytes acceptable Serum lithium improving; NO indication for HD now C/W IV fluids and supportive care for now; Shall F/U Procedures Date of Service Date of Service: 07/02/23
--- NOTE | 2023-07-02 09:42 | PM.PSYCN ---
History of Present Illness Date of Service: 07/03/2023 Chief Complaint: [place] toxicity Discussed with referring provider: Yes Sources of Information: patient interviewed, chart reviewed and crisis/core team assessment reviewed HPI Narrative: Interim Hx: pt somewhat somnolent this morning. She appears to have less myoclonus. She reports feeling tired. However, exam limited as pt kept closing her eyes- to better assess mentation and possible increase confusion due to lithium toxicity. Note that even after lithium levels have normalized other neurological symptoms may remained and may take longer to fully resolved. Today, lithium level 1.42, continued lithium level check every 4-6 hrs. [facility] Medical History ADHD Anemia FTT (failure to thrive) in adult Hypothyroidism Opiate use Bipolar 1 disorder Diagnostics Vital Signs (24Hr): Vital Signs - 24 hr 07/01/23 13:18 07/01/23 17:46 07/02/23 01:15 Temperature 98.3 F 98.7 F 98.1 F Pulse Rate 117 H 94 100 Respiratory Rate 16 20 16 Blood Pressure 118/90 H 94/60 116/78 Pulse Oximetry 100 98 98 Oxygen Delivery Method Room Air Room Air Room Air 07/02/23 06:21 07/02/23 07:52 Temperature 97.4 F Pulse Rate 98 104 H Respiratory Rate 12 14 Blood Pressure 106/70 117/85 Pulse Oximetry 96 98 Oxygen Delivery Method Room Air Room Air BMI result Body Mass Index 25.4 Labs 07/01/23 13:41 07/03/23 05:49 Labs: Laboratory Results - last 48 hr 07/01/23 07/01/23 07/01/23 13:41 16:02 20:46 WBC 5.4 RBC 3.37 L Hgb 10.8 L Hct 31.9 L MCV 94.7 MCH 32.0 MCHC 33.9 RDW 13.7 Plt Count 199 MPV 9.0 L Immature Gran % (Auto) 1.1 H Neut % (Auto) 59.5 Lymph % (Auto) 19.9 L [place] % (Auto) 18.7 H Eos % (Auto) 0.6 Baso % (Auto) 0.2 Lymph # (Auto) 1.1 L [place] # (Auto) 1.0 Eos # (Auto) 0.0 Baso # (Auto) 0.0 Abs Immat Gran (auto) 0.06 H Absolute Neuts (auto) 3.2 Absolute Nucleated RBC 0.000 Nucleated RBC % (auto) 0.0 Sodium 136 Potassium 3.7 Chloride 103 Carbon Dioxide 27 Anion Gap 10 L BUN 29 H Creatinine 0.77 Estim Creat Clear Calc 79.2 Estimated GFR > 60 Random Glucose 108 Calcium 9.5 Magnesium 2.1 Total Bilirubin 0.4 Direct Bilirubin 0.2 AST 25 ALT 16 Alkaline Phosphatase 78 Ammonia 19 Total Protein 5.7 L Albumin 3.2 L Lipase < 4 L TSH 1.51 Beta HCG, Quant < 2 Urine Color Urine Appearance Urine pH Ur Specific [place] Urine Protein Urine Glucose (UA) Urine Ketones Urine Blood Urine Nitrite Ur Leukocyte Esterase Urine RBC Urine WBC Ur Squamous Epith Cells Urine Bacteria Hyaline Casts Valproic Acid 90.0 [place] 1.80 H* 1.67 H* 1.58 H* 07/02/23 07/02/23 07/02/23 01:49 04:58 06:15 WBC RBC Hgb Hct MCV MCH MCHC RDW Plt Count MPV Immature Gran % (Auto) Neut % (Auto) Lymph % (Auto) [place] % (Auto) Eos % (Auto) Baso % (Auto) Lymph # (Auto) [place] # (Auto) Eos # (Auto) Baso # (Auto) Abs Immat Gran (auto) Absolute Neuts (auto) Absolute Nucleated RBC Nucleated RBC % (auto) Sodium Potassium Chloride Carbon Dioxide Anion Gap BUN Creatinine Estim Creat Clear Calc Estimated GFR Random Glucose Calcium Magnesium Total Bilirubin Direct Bilirubin AST ALT Alkaline Phosphatase Ammonia Total Protein Albumin Lipase TSH Beta HCG, Quant Urine Color Dark Yellow Urine Appearance Cloudy Urine pH 6.0 Ur Specific [place] 1.025 Urine Protein Trace Urine Glucose (UA) Negative Urine Ketones 15 Urine Blood Negative Urine Nitrite Positive H Ur Leukocyte Esterase Moderate (2+) H Urine RBC 0-2 Urine WBC 11-20 H Ur Squamous Epith Cells 11-20 Urine Bacteria 4+ Hyaline Casts 3-5 Valproic Acid [place] 1.62 H* 1.49 H 07/02/23 09:27 WBC RBC Hgb Hct MCV MCH MCHC RDW Plt Count MPV Immature Gran % (Auto) Neut % (Auto) Lymph % (Auto) [place] % (Auto) Eos % (Auto) Baso % (Auto) Lymph # (Auto) [place] # (Auto) Eos # (Auto) Baso # (Auto) Abs Immat Gran (auto) Absolute Neuts (auto) Absolute Nucleated RBC Nucleated RBC % (auto) Sodium Potassium Chloride Carbon Dioxide Anion Gap BUN Creatinine Estim Creat Clear Calc Estimated GFR Random Glucose Calcium Magnesium Total Bilirubin Direct Bilirubin AST ALT Alkaline Phosphatase Ammonia Total Protein Albumin Lipase TSH Beta HCG, Quant Urine Color Urine Appearance Urine pH Ur Specific [place] Urine Protein Urine Glucose (UA) Urine Ketones Urine Blood Urine Nitrite Ur Leukocyte Esterase Urine RBC Urine WBC Ur Squamous Epith Cells Urine Bacteria Hyaline Casts Valproic Acid [place] Cancelled Imaging Radiology Impressions: ITS Impressions Head CT 07/01/23 15:29 IMPRESSION: No acute intracranial pathology. Mental Status Exam Mental Status Exam Narrative: pt in bed, somewhat anxious but in no acute distress. She reports feeling cold and tired. visible clonus alert, oriented to place, month, year insight/judgment: limited x 2. Medications Medications Current Medications Acetaminophen (Acetaminophen 325 Mg Tablet) 650 mg PO Q6H PRN PRN Reason: Pain, Mild (Pain Scale 1-3) Al Hydroxide/Mg Hydroxide (Magnesium Hydrox/Alum Hydrox 30 Ml Oral.Susp) 30 ml PO Q6H PRN PRN Reason: Heartburn Benztropine Mesylate (Benztropine Mesylate 1 Mg Tablet) 1 mg PO BID [facility] Last Admin: 07/01/23 21:36 Dose: 1 mg Bisacodyl (Bisacodyl 5 Mg Tablet.Dr) 10 mg PO DAILY [facility] Bisacodyl (Bisacodyl 10 Mg Supp.Rect) 10 mg [place] DAILY PRN PRN Reason: Constipation Buprenorphine/Naloxone (Buprenorphine/Naloxone 2/0.5mg Film) 1 film SUBLINGUAL DAILY [facility] Buprenorphine/Naloxone (Buprenorphine/Naloxone 4/1 Mg Film) 1 film BUCCAL BEDTIME [facility] Last Admin: 07/01/23 21:36 Dose: 1 film Bupropion HCl (Bupropion Hcl Xl 150 Mg Tab.Er.24h) 150 mg PO DAILY [facility] Chlorpromazine HCl (Chlorpromazine Hcl 25 Mg/Ml Ampul) 50 mg IM Q6H PRN PRN Reason: Agitation Chlorpromazine HCl (Chlorpromazine Hcl 25 Mg/Ml Ampul) 50 mg IM TID PRN PRN Reason: Agitation Chlorpromazine HCl (Chlorpromazine Hcl 25 Mg Tablet) 50 mg PO TID PRN PRN Reason: Agitation Clonazepam (Clonazepam 1 Mg Tablet) 1 mg PO DAILY [facility] Clonidine HCl (Clonidine Hcl 0.1 Mg Tablet) 0.1 mg PO Q8H PRN; Protocol PRN Reason: Hypertension Diphenhydramine HCl (Diphenhydramine Hcl 25 Mg Capsule) 25 mg PO Q8H PRN PRN Reason: Anxiety Enoxaparin Sodium (Enoxaparin Sodium 40 Mg/0.4 Ml Syringe) 40 mg SUBCUT Q24H [facility] Last Admin: 07/01/23 21:36 Dose: 40 mg Sodium Chloride (Ns) 1,000 mls @ 250 mls/hr IVCONT .Q4H [facility] Last Admin: 07/02/23 05:58 Dose: 250 mls/hr Levothyroxine Sodium (Levothyroxine Sodium 25 Mcg Tablet) 25 mcg PO DAILY@0600 [facility] Last Admin: 07/02/23 06:37 Dose: 25 mcg Lorazepam (Lorazepam 1 Mg Tablet) 1 mg PO Q6H PRN PRN Reason: anxiety/restlessness Multivitamins/Vitamin C (Multivitamin Tablet) 1 tab PO DAILY [facility] Nicotine (Nicotine 21 Mg Patch.Td24) 21 mg TRANSDERMA DAILY [facility] Nicotine Polacrilex (Nicotine Polacrilex 2 Mg Gum) 4 mg BUCCAL Q2H PRN PRN Reason: Smoking Cessation Non-Formulary Medication (Methylphenidate Hcl) 18 mg PO DAILY [facility] Phenazopyridine HCl (Phenazopyridine Hcl 200 Mg Tablet) 200 mg PO TID PRN PRN Reason: URINARY DISCOMFORT Polyethylene Glycol (Polyethylene Glycol 3350 17 Gm Powd.Pack) 17 gm PO DAILY PRN PRN Reason: Constipation Quetiapine Fumarate (Quetiapine Fumarate 50 Mg Tablet) 50 mg PO BID [facility] Last Admin: 07/01/23 21:36 Dose: 50 mg Quetiapine Fumarate (Quetiapine Fumarate 100 Mg Tablet) 100 mg PO BEDTIME PRN PRN Reason: Insomnia Sodium Chloride (0.9 % Sodium Chloride Flush 3 Ml Syringe) 3 ml IVFLUSH QSHIFT [facility] Last Admin: 07/02/23 09:03 Dose: Not Given Topiramate (Topiramate 25 Mg Tablet) 25 mg PO BID [facility] Last Admin: 07/01/23 21:36 Dose: 25 mg Zolpidem Tartrate (Zolpidem Tartrate 5 Mg Tablet) 5 mg PO BEDTIME [facility] Last Admin: 07/01/23 21:36 Dose: 5 mg Allergies Allergies Allergy/AdvReac Type Severity Reaction Status Date / Time No Known Allergies Allergy Verified 07/01/23 13:21 Assessment & Plan Assessment & Plan (1) [place] toxicity: Qualifiers: Encounter type: sequela Injury intent: accidental or unintentional Qualified Code(s): T56.891S - Toxic effect of other metals, accidental (unintentional), sequela Status: Acute Code(s): T56.891A - Toxic effect of other metals, accidental (unintentional), initial encounter Plan Pt presents with myoclonic movements, unsteady gait. [place] level supratherapeutic. Apparently, lithium had been stopped 2-3 days prior to admission to ED- suspect much higher level. No hyperthermia, no rigidity nor cog wheel on exam. No elevation in WBC. despite BUN elevated, creatinine clearance 77, GAF>60. serial lithium levels/bmp have been ordered. Pt given IV fluids. No significant cardiac effects noted, no qtc prolongation nor bradycardia or arrythmias. No TSH abnormalities. Calcium is normal, may not need to check PTH (lithium mimics calcium and binds in calcium-sensing receptors in parathyroid). PLAN 06/30 -Continue suboxone to avoid opiod withdrawal symptoms. For now- safe to hold depakote, topamax, thorazine, seroquel and ambien. She did have per documentation from [facility]- paliperidone invega 234mg IM on 06/29. -continue to follow resolution of clonus, labs abnormalities (lithium level, renal function) 07/01 [place] level down to 1.42. appears to have less myoclonus especially upper extremity. Keep in mind that neurological s/s of lithium toxicity may take longer to resolve even after lithium level has normalized. Psych to continue to follow. May also consider neurology consult. Total time managing care of this patient today ____ minutes.
[2023-07-02] MEDS: bisacodyL 5 MG TABLET.DR 10 MG PO (09:45)
[2023-07-02] MEDS: Buprenorphine/Naloxone 2/0.5mg FILM 1 FILM SUBLINGUAL (09:46)
[2023-07-02] MEDS: buPROPion HCl XL 150 MG TAB.ER.24H PO (09:46)
[2023-07-02] MEDS: Topiramate 25 MG TABLET PO (09:46)
[2023-07-02] MEDS: QUEtiapine Fumarate 50 MG TABLET PO (09:46)
[2023-07-02] MEDS: Benztropine Mesylate 1 MG TABLET PO ×2 (09:46→20:26)
[2023-07-02] MEDS: Multivitamin TABLET 1 TAB PO (09:46)
[2023-07-02] MEDS: clonazePAM 1 MG TABLET PO (09:46)
[2023-07-02] MEDS: Nicotine 21 MG PATCH.TD24 TRANSDERMA (09:47)
[2023-07-02 09:48] LABS: Lithium 1.38 mmol/L (0.60-1.20)
[2023-07-02 09:55] LABS: Anion Gap 5 (12-20); Blood Urea Nitrogen 22 mg/dL (9-16); Carbon Dioxide 27 mmol/L (22-29); Chloride 110 mmol/L (96-108); Creatinine Clr Calc Pharmacy 93.8; Estimated Glomerular Filt Rate > 60; Glucose Random 81 mg/dL (60-115); Potassium 3.7 mmol/L (3.3-5.1); Sodium 138 mmol/L (135-145)
[2023-07-02 10:08] LABS: Calcium 8.7 mg/dL (8.4-10.2)
[2023-07-02 11:15] VITALS: BP 115/80; PULSE 101; RESP 18; TEMP 36.3; O2SAT 100
--- NOTE | 2023-07-02 13:06 | PM.PSYCN ---
History of Present Illness Date of Service: 07/02/2023 Chief Complaint: [place] toxicity Reason for Consult: lithium toxicity Requesting physician: Kortney Jama Sources of Information: patient interviewed and chart reviewed Additional Sources of Information: nursing staff Review of Systems Review of Systems Unable to obtain due to patient's mentation Yes Unobtainable due to mental condition [facility] Medical History ADHD Anemia FTT (failure to thrive) in adult Hypothyroidism Opiate use Bipolar 1 disorder Diagnostics Vital Signs (24Hr): Vital Signs - 24 hr 07/01/23 13:18 07/01/23 17:46 07/02/23 01:15 Temperature 98.3 F 98.7 F 98.1 F Pulse Rate 117 H 94 100 Respiratory Rate 16 20 16 Blood Pressure 118/90 H 94/60 116/78 Pulse Oximetry 100 98 98 Oxygen Delivery Method Room Air Room Air Room Air 07/02/23 06:21 07/02/23 07:52 07/02/23 11:15 Temperature 97.4 F 97.3 F Pulse Rate 98 104 H 101 H Respiratory Rate 12 14 18 Blood Pressure 106/70 117/85 115/80 Pulse Oximetry 96 98 100 Oxygen Delivery Method Room Air Room Air BMI result Body Mass Index 25.4 Labs 07/01/23 13:41 07/02/23 09:27 Labs: Laboratory Results - last 48 hr 07/01/23 07/01/23 07/01/23 13:41 16:02 20:46 WBC 5.4 RBC 3.37 L Hgb 10.8 L Hct 31.9 L MCV 94.7 MCH 32.0 MCHC 33.9 RDW 13.7 Plt Count 199 MPV 9.0 L Immature Gran % (Auto) 1.1 H Neut % (Auto) 59.5 Lymph % (Auto) 19.9 L Rich % (Auto) 18.7 H Eos % (Auto) 0.6 Baso % (Auto) 0.2 Lymph # (Auto) 1.1 L Rich # (Auto) 1.0 Eos # (Auto) 0.0 Baso # (Auto) 0.0 Abs Immat Gran (auto) 0.06 H Absolute Neuts (auto) 3.2 Absolute Nucleated RBC 0.000 Nucleated RBC % (auto) 0.0 Sodium 136 Potassium 3.7 Chloride 103 Carbon Dioxide 27 Anion Gap 10 L BUN 29 H Creatinine 0.77 Estim Creat Clear Calc 79.2 Estimated GFR > 60 Random Glucose 108 Calcium 9.5 Magnesium 2.1 Total Bilirubin 0.4 Direct Bilirubin 0.2 AST 25 ALT 16 Alkaline Phosphatase 78 Ammonia 19 Total Creatine Kinase Total Protein 5.7 L Albumin 3.2 L Lipase < 4 L TSH 1.51 Beta HCG, Quant < 2 Urine Color Urine Appearance Urine pH Ur Specific [place] Urine Protein Urine Glucose (UA) Urine Ketones Urine Blood Urine Nitrite Ur Leukocyte Esterase Urine RBC Urine WBC Ur Squamous Epith Cells Urine Bacteria Hyaline Casts Valproic Acid 90.0 [place] 1.80 H* 1.67 H* 1.58 H* 07/02/23 07/02/23 07/02/23 01:49 04:58 06:15 WBC RBC Hgb Hct MCV MCH MCHC RDW Plt Count MPV Immature Gran % (Auto) Neut % (Auto) Lymph % (Auto) Rich % (Auto) Eos % (Auto) Baso % (Auto) Lymph # (Auto) Rich # (Auto) Eos # (Auto) Baso # (Auto) Abs Immat Gran (auto) Absolute Neuts (auto) Absolute Nucleated RBC Nucleated RBC % (auto) Sodium Potassium Chloride Carbon Dioxide Anion Gap BUN Creatinine Estim Creat Clear Calc Estimated GFR Random Glucose Calcium Magnesium Total Bilirubin Direct Bilirubin AST ALT Alkaline Phosphatase Ammonia Total Creatine Kinase Total Protein Albumin Lipase TSH Beta HCG, Quant Urine Color Dark Yellow Urine Appearance Cloudy Urine pH 6.0 Ur Specific [place] 1.025 Urine Protein Trace Urine Glucose (UA) Negative Urine Ketones 15 Urine Blood Negative Urine Nitrite Positive H Ur Leukocyte Esterase Moderate (2+) H Urine RBC 0-2 Urine WBC 11-20 H Ur Squamous Epith Cells 11-20 Urine Bacteria 4+ Hyaline Casts 3-5 Valproic Acid [place] 1.62 H* 1.49 H 07/02/23 07/02/23 09:27 09:27 WBC RBC Hgb Hct MCV MCH MCHC RDW Plt Count MPV Immature Gran % (Auto) Neut % (Auto) Lymph % (Auto) Rich % (Auto) Eos % (Auto) Baso % (Auto) Lymph # (Auto) Rich # (Auto) Eos # (Auto) Baso # (Auto) Abs Immat Gran (auto) Absolute Neuts (auto) Absolute Nucleated RBC Nucleated RBC % (auto) Sodium 138 Potassium 3.7 Chloride 110 H Carbon Dioxide 27 Anion Gap 5 L BUN 22 H Creatinine 0.65 Estim Creat Clear Calc 93.8 Estimated GFR > 60 Random Glucose 81 Calcium 8.7 D Magnesium Total Bilirubin Direct Bilirubin AST ALT Alkaline Phosphatase Ammonia Total Creatine Kinase 100 Total Protein Albumin Lipase TSH Beta HCG, Quant Urine Color Urine Appearance Urine pH Ur Specific [place] Urine Protein Urine Glucose (UA) Urine Ketones Urine Blood Urine Nitrite Ur Leukocyte Esterase Urine RBC Urine WBC Ur Squamous Epith Cells Urine Bacteria Hyaline Casts Valproic Acid [place] Cancelled 1.38 H Imaging Radiology Impressions: ITS Impressions Head CT 07/01/23 15:29 IMPRESSION: No acute intracranial pathology. Mental Status Exam Mental Status Exam Narrative: pt in bed, somewhat anxious but in no acute distress. She reports feeling cold and tired. visible clonus alert, oriented to place, month, year insight/judgment: limited x 2. Medications Medications Current Medications Acetaminophen (Acetaminophen 325 Mg Tablet) 650 mg PO Q6H PRN PRN Reason: Pain, Mild (Pain Scale 1-3) Al Hydroxide/Mg Hydroxide (Magnesium Hydrox/Alum Hydrox 30 Ml Oral.Susp) 30 ml PO Q6H PRN PRN Reason: Heartburn Benztropine Mesylate (Benztropine Mesylate 1 Mg Tablet) 1 mg PO BID [facility] Last Admin: 07/02/23 09:46 Dose: 1 mg Bisacodyl (Bisacodyl 5 Mg Tablet.Dr) 10 mg PO DAILY [facility] Last Admin: 07/02/23 09:45 Dose: 10 mg Bisacodyl (Bisacodyl 10 Mg Supp.Rect) 10 mg [place] DAILY PRN PRN Reason: Constipation Buprenorphine/Naloxone (Buprenorphine/Naloxone 2/0.5mg Film) 1 film SUBLINGUAL DAILY [facility] Last Admin: 07/02/23 09:46 Dose: 1 film Buprenorphine/Naloxone (Buprenorphine/Naloxone 4/1 Mg Film) 1 film BUCCAL BEDTIME [facility] Last Admin: 07/01/23 21:36 Dose: 1 film Bupropion HCl (Bupropion Hcl Xl 150 Mg Tab.Er.24h) 150 mg PO DAILY [facility] Last Admin: 07/02/23 09:46 Dose: 150 mg Chlorpromazine HCl (Chlorpromazine Hcl 25 Mg/Ml Ampul) 50 mg IM Q6H PRN PRN Reason: Agitation Chlorpromazine HCl (Chlorpromazine Hcl 25 Mg/Ml Ampul) 50 mg IM TID PRN PRN Reason: Agitation Chlorpromazine HCl (Chlorpromazine Hcl 25 Mg Tablet) 50 mg PO TID PRN PRN Reason: Agitation Clonazepam (Clonazepam 1 Mg Tablet) 1 mg PO DAILY [facility] Last Admin: 07/02/23 09:46 Dose: 1 mg Clonidine HCl (Clonidine Hcl 0.1 Mg Tablet) 0.1 mg PO Q8H PRN; Protocol PRN Reason: Hypertension Diphenhydramine HCl (Diphenhydramine Hcl 25 Mg Capsule) 25 mg PO Q8H PRN PRN Reason: Anxiety Enoxaparin Sodium (Enoxaparin Sodium 40 Mg/0.4 Ml Syringe) 40 mg SUBCUT Q24H [facility] Last Admin: 07/01/23 21:36 Dose: 40 mg Sodium Chloride (Ns) 1,000 mls @ 250 mls/hr IVCONT .Q4H [facility] Last Admin: 07/02/23 09:54 Dose: 250 mls/hr Levothyroxine Sodium (Levothyroxine Sodium 25 Mcg Tablet) 25 mcg PO DAILY@0600 [facility] Last Admin: 07/02/23 06:37 Dose: 25 mcg Lorazepam (Lorazepam 1 Mg Tablet) 1 mg PO Q6H PRN PRN Reason: anxiety/restlessness Multivitamins/Vitamin C (Multivitamin Tablet) 1 tab PO DAILY [facility] Last Admin: 07/02/23 09:46 Dose: 1 tab Nicotine (Nicotine 21 Mg Patch.Td24) 21 mg TRANSDERMA DAILY [facility] Last Admin: 07/02/23 09:47 Dose: 21 mg Nicotine Polacrilex (Nicotine Polacrilex 2 Mg Gum) 4 mg BUCCAL Q2H PRN PRN Reason: Smoking Cessation Non-Formulary Medication (Methylphenidate Hcl) 18 mg PO DAILY [facility] Phenazopyridine HCl (Phenazopyridine Hcl 200 Mg Tablet) 200 mg PO TID PRN PRN Reason: URINARY DISCOMFORT Polyethylene Glycol (Polyethylene Glycol 3350 17 Gm Powd.Pack) 17 gm PO DAILY PRN PRN Reason: Constipation Quetiapine Fumarate (Quetiapine Fumarate 50 Mg Tablet) 50 mg PO BID [facility] Last Admin: 07/02/23 09:46 Dose: 50 mg Quetiapine Fumarate (Quetiapine Fumarate 100 Mg Tablet) 100 mg PO BEDTIME PRN PRN Reason: Insomnia Sodium Chloride (0.9 % Sodium Chloride Flush 3 Ml Syringe) 3 ml IVFLUSH QSHIFT [facility] Last Admin: 07/02/23 09:03 Dose: Not Given Topiramate (Topiramate 25 Mg Tablet) 25 mg PO BID [facility] Last Admin: 07/02/23 09:46 Dose: 25 mg Zolpidem Tartrate (Zolpidem Tartrate 5 Mg Tablet) 5 mg PO BEDTIME [facility] Last Admin: 07/01/23 21:36 Dose: 5 mg Allergies Allergies Allergy/AdvReac Type Severity Reaction Status Date / Time No Known Allergies Allergy Verified 07/01/23 13:21 Assessment & Plan Assessment & Plan (1) [place] toxicity: Qualifiers: Encounter type: sequela Injury intent: accidental or unintentional Qualified Code(s): T56.891S - Toxic effect of other metals, accidental (unintentional), sequela Status: Acute Code(s): T56.891A - Toxic effect of other metals, accidental (unintentional), initial encounter Plan Pt presents with myoclonic movements, unsteady gait. [place] level supratherapeutic. Apparently, lithium had been stopped 2-3 days prior to admission to ED- suspect much higher level. No hyperthermia, no rigidity nor cog wheel on exam. No elevation in WBC. despite BUN elevated, creatinine clearance 77, GAF>60. serial lithium levels/bmp have been ordered. Pt given IV fluids. No significant cardiac effects noted, no qtc prolongation nor bradycardia or arrythmias. No TSH abnormalities. Calcium is normal, may not need to check PTH (lithium mimics calcium and binds in calcium sensing receptors in parathyroid). PLAN 1. Continue suboxone to avoid opiod withdrawal symptoms. For now- safe to hold depakote, topamax, thorazine, seroquel and ambien. She did have per documentation from [facility]- paliperidone invega 234mg IM on 06/29. 2.continue to follow resolution of clonus, labs abnormalities (lithium level, renal function) Total time managing care of this patient today ____ minutes.
--- NOTE | 2023-07-02 13:46 | HO.PM.IMPN ---
Subjective Subjective Date of Service: 07/02/23 Interval History: Being followed for lithium toxicity Unable to obtain history due to patient's mentation, somnolent , verbalize few words, does not open eyes. Declined breakfast. Review of Systems Unable to obtain due to mental status. Physical Exam Vital Signs: Vital Signs: Last Vital Signs Temp 97.3 F 07/02/23 11:15 Pulse 101 H 07/02/23 11:15 Resp 18 07/02/23 11:15 BP 115/80 07/02/23 11:15 Pulse Ox 100 07/02/23 11:15 O2 Del Method Room Air 07/02/23 07:52 BMI result Body Mass Index 25.4 Const: Other: General somnolent, arousable not opening eyes, in no acute distress. Neck no JVD. CVS regular rate rhythm, Respiratory lungs clear to auscultation, no respiratory distress Gastrointestinal abdomen soft, bowel sounds audible Extremities no edema. Neuro moving all 4 extremities, no tremors Skin no rash Objective Data Active Medications Acetaminophen (Acetaminophen 325 Mg Tablet) 650 mg PO Q6H PRN PRN Reason: Pain, Mild (Pain Scale 1-3) Al Hydroxide/Mg Hydroxide (Magnesium Hydrox/Alum Hydrox 30 Ml Oral.Susp) 30 ml PO Q6H PRN PRN Reason: Heartburn Benztropine Mesylate (Benztropine Mesylate 1 Mg Tablet) 1 mg PO BID [facility] Last Admin: 07/02/23 09:46 Dose: 1 mg Documented By: ADAMARIS Bisacodyl (Bisacodyl 5 Mg Tablet.Dr) 10 mg PO DAILY [facility] Last Admin: 07/02/23 09:45 Dose: 10 mg Documented By: ADAMARIS Bisacodyl (Bisacodyl 10 Mg Supp.Rect) 10 mg [place] DAILY PRN PRN Reason: Constipation Buprenorphine/Naloxone (Buprenorphine/Naloxone 2/0.5mg Film) 1 film SUBLINGUAL DAILY [facility] Last Admin: 07/02/23 09:46 Dose: 1 film Documented By: ADAMARIS Buprenorphine/Naloxone (Buprenorphine/Naloxone 4/1 Mg Film) 1 film BUCCAL BEDTIME [facility] Last Admin: 07/01/23 21:36 Dose: 1 film Documented By: TEREZA Bupropion HCl (Bupropion Hcl Xl 150 Mg Tab.Er.24h) 150 mg PO DAILY [facility] Last Admin: 07/02/23 09:46 Dose: 150 mg Documented By: ADAMARIS Chlorpromazine HCl (Chlorpromazine Hcl 25 Mg/Ml Ampul) 50 mg IM Q6H PRN PRN Reason: Agitation Chlorpromazine HCl (Chlorpromazine Hcl 25 Mg/Ml Ampul) 50 mg IM TID PRN PRN Reason: Agitation Chlorpromazine HCl (Chlorpromazine Hcl 25 Mg Tablet) 50 mg PO TID PRN PRN Reason: Agitation Clonazepam (Clonazepam 1 Mg Tablet) 1 mg PO DAILY [facility] Last Admin: 07/02/23 09:46 Dose: 1 mg Documented By: ADAMARIS Clonidine HCl (Clonidine Hcl 0.1 Mg Tablet) 0.1 mg PO Q8H PRN; Protocol PRN Reason: Hypertension Diphenhydramine HCl (Diphenhydramine Hcl 25 Mg Capsule) 25 mg PO Q8H PRN PRN Reason: Anxiety Enoxaparin Sodium (Enoxaparin Sodium 40 Mg/0.4 Ml Syringe) 40 mg SUBCUT Q24H [facility] Last Admin: 07/01/23 21:36 Dose: 40 mg Documented By: TEREZA Sodium Chloride (Ns) 1,000 mls @ 250 mls/hr IVCONT .Q4H [facility] Last Admin: 07/02/23 09:54 Dose: 250 mls/hr Documented By: ADAMARIS Levothyroxine Sodium (Levothyroxine Sodium 25 Mcg Tablet) 25 mcg PO DAILY@0600 [facility] Last Admin: 07/02/23 06:37 Dose: 25 mcg Documented By: GLORIA Lorazepam (Lorazepam 1 Mg Tablet) 1 mg PO Q6H PRN PRN Reason: anxiety/restlessness Multivitamins/Vitamin C (Multivitamin Tablet) 1 tab PO DAILY [facility] Last Admin: 07/02/23 09:46 Dose: 1 tab Documented By: ADAMARIS Nicotine (Nicotine 21 Mg Patch.Td24) 21 mg TRANSDERMA DAILY [facility] Last Admin: 07/02/23 09:47 Dose: 21 mg Documented By: ADAMARIS Nicotine Polacrilex (Nicotine Polacrilex 2 Mg Gum) 4 mg [place] Q2H PRN PRN Reason: Smoking Cessation Non-Formulary Medication (Methylphenidate Hcl) 18 mg PO DAILY [facility] Phenazopyridine HCl (Phenazopyridine Hcl 200 Mg Tablet) 200 mg PO TID PRN PRN Reason: URINARY DISCOMFORT Polyethylene Glycol (Polyethylene Glycol 3350 17 Gm Powd.Pack) 17 gm PO DAILY PRN PRN Reason: Constipation Quetiapine Fumarate (Quetiapine Fumarate 50 Mg Tablet) 50 mg PO BID [facility] Last Admin: 07/02/23 09:46 Dose: 50 mg Documented By: ADAMARIS Quetiapine Fumarate (Quetiapine Fumarate 100 Mg Tablet) 100 mg PO BEDTIME PRN PRN Reason: Insomnia Sodium Chloride (0.9 % Sodium Chloride Flush 3 Ml Syringe) 3 ml IVFLUSH QSHIFT [facility] Last Admin: 07/02/23 09:03 Dose: Not Given Documented By: ADAMARIS Non-Admin Reason: IV Running Topiramate (Topiramate 25 Mg Tablet) 25 mg PO BID [facility] Last Admin: 07/02/23 09:46 Dose: 25 mg Documented By: ADAMARIS Zolpidem Tartrate (Zolpidem Tartrate 5 Mg Tablet) 5 mg PO BEDTIME [facility] Last Admin: 07/01/23 21:36 Dose: 5 mg Documented By: ELSIEA Labs 07/01/23 13:41 07/02/23 09:27 Labs: Laboratory Results - last 24 hr 07/01/23 07/01/23 07/01/23 13:41 16:02 20:46 MCV 94.7 MCH 32.0 MCHC 33.9 RDW 13.7 Plt Count 199 MPV 9.0 L Immature Gran % (Auto) 1.1 H Neut % (Auto) 59.5 Lymph % (Auto) 19.9 L [place] % (Auto) 18.7 H Eos % (Auto) 0.6 Baso % (Auto) 0.2 Lymph # (Auto) 1.1 L [place] # (Auto) 1.0 Eos # (Auto) 0.0 Baso # (Auto) 0.0 Abs Immat Gran (auto) 0.06 H Absolute Neuts (auto) 3.2 Absolute Nucleated RBC 0.000 Nucleated RBC % (auto) 0.0 Anion Gap 10 L Estim Creat Clear Calc 79.2 Estimated GFR > 60 Random Glucose 108 Calcium 9.5 Magnesium 2.1 Total Bilirubin 0.4 Direct Bilirubin 0.2 AST 25 ALT 16 Alkaline Phosphatase 78 Ammonia 19 Total Creatine Kinase Total Protein 5.7 L Albumin 3.2 L Lipase < 4 L TSH 1.51 Beta HCG, Quant < 2 Urine Color Urine Appearance Urine pH Ur Specific [place] Urine Protein Urine Glucose (UA) Urine Ketones Urine Blood Urine Nitrite Ur Leukocyte Esterase Urine RBC Urine WBC Ur Squamous Epith Cells Urine Bacteria Hyaline Casts Valproic Acid 90.0 [place] 1.80 H* 1.67 H* 1.58 H* 07/02/23 07/02/23 07/02/23 01:49 04:58 06:15 MCV MCH MCHC RDW Plt Count MPV Immature Gran % (Auto) Neut % (Auto) Lymph % (Auto) [place] % (Auto) Eos % (Auto) Baso % (Auto) Lymph # (Auto) [place] # (Auto) Eos # (Auto) Baso # (Auto) Abs Immat Gran (auto) Absolute Neuts (auto) Absolute Nucleated RBC Nucleated RBC % (auto) Anion Gap Estim Creat Clear Calc Estimated GFR Random Glucose Calcium Magnesium Total Bilirubin Direct Bilirubin AST ALT Alkaline Phosphatase Ammonia Total Creatine Kinase Total Protein Albumin Lipase TSH Beta HCG, Quant Urine Color Dark Yellow Urine Appearance Cloudy Urine pH 6.0 Ur Specific [place] 1.025 Urine Protein Trace Urine Glucose (UA) Negative Urine Ketones 15 Urine Blood Negative Urine Nitrite Positive H Ur Leukocyte Esterase Moderate (2+) H Urine RBC 0-2 Urine WBC 11-20 H Ur Squamous Epith Cells 11-20 Urine Bacteria 4+ Hyaline Casts 3-5 Valproic Acid [place] 1.62 H* 1.49 H 07/02/23 07/02/23 09:27 09:27 MCV MCH MCHC RDW Plt Count MPV Immature Gran % (Auto) Neut % (Auto) Lymph % (Auto) [place] % (Auto) Eos % (Auto) Baso % (Auto) Lymph # (Auto) [place] # (Auto) Eos # (Auto) Baso # (Auto) Abs Immat Gran (auto) Absolute Neuts (auto) Absolute Nucleated RBC Nucleated RBC % (auto) Anion Gap 5 L Estim Creat Clear Calc 93.8 Estimated GFR > 60 Random Glucose 81 Calcium 8.7 D Magnesium Total Bilirubin Direct Bilirubin AST ALT Alkaline Phosphatase Ammonia Total Creatine Kinase 100 Total Protein Albumin Lipase TSH Beta HCG, Quant Urine Color Urine Appearance Urine pH Ur Specific [place] Urine Protein Urine Glucose (UA) Urine Ketones Urine Blood Urine Nitrite Ur Leukocyte Esterase Urine RBC Urine WBC Ur Squamous Epith Cells Urine Bacteria Hyaline Casts Valproic Acid [place] Cancelled 1.38 H Assessment and Plan (1) [place] toxicity: Status: Acute Plan 32-year-old female with past medical history significant for opioid use disorder, ADHD, bipolar disorder present to ED from [facility] for evaluation of unsteady gait, tremors of 1 week duration Patient lithium was stopped on 06/28 at the facility patient admitted to hospital for further treatment and evaluation of lithium toxicity. Acute on chronic lithium toxicity admitted with tremors, ataxia, altered mental status Somnolent this morning, not opening eyes [place] levels 1.8 at time of presentation now trended down to 1.49 ,[place] stopped 2 days prior on 06/28 No hypothermia , no rigidity, normal WBC, normal renal function and TSH Continue aggressive IV hydration 200ml/hr Seen by psychiatry they recommend to hold Depakote, Topamax, Thorazine, Seroquel and Ambien, patient received Invega 234 mg IM on 06/29 Will follow lithium levels Q12h,follow renal function and close clinical follow-up Seen by nephrology, no indication for hemodialysis at present they recommend to continue supportive care and IV fluids Mood disorder Hold medications as per psych Being followed by Psychiatry. Opiate use disorder Continue Suboxone Hypothyroidism Stable TSH, Continue levothyroxine Full Code DVT Prophylaxis: Lovenox Pt will require continued inpatient hospitalization for treatment of?acute on chronic lithium toxicity with aggressive IV F hydration, close monitoring of mentation, labs, and cardiac function. Quality Stroke Does the patient have a stroke diagnosis?: No VTE Prior VTE?: No VTE Risk Level:: Medical - moderate - high VTE Device Contraindication: Treatment Not Indicated VTE Drug Contraindication: N/A - Med Ordered
--- NOTE | 2023-07-02 15:02 | MHC.CM.PN ---
IMM 07/01, addressed with pts guardian Shayla Arnold at [phone], copy emailed per their request. Guardianship paperwork on file. Pt was at [facility] prior to hospitalization for lithium toxicity. DCP: return to [facility] once medically cleared via BLS transport.
[2023-07-02 15:33] VITALS: BP 120/78; PULSE 96; RESP 18; TEMP 37.2; O2SAT 99
[2023-07-02 18:27] LABS: Lithium 1.14 mmol/L (0.60-1.20)
[2023-07-02 19:22] VITALS: BP 103/70; PULSE 118; RESP 20; TEMP 37; O2SAT 99
[2023-07-02] MEDS: Buprenorphine/Naloxone 4/1 mg FILM 1 FILM BUCCAL (20:26)
[2023-07-02 21:53] LABS: Lithium 1.06 mmol/L (0.60-1.20)
[2023-07-02] MEDS: Enoxaparin Sodium 40 MG/0.4 ML SYRINGE SUBCUT (23:30)
[2023-07-03] VITALS: BP 114/74; PULSE 118; RESP 18; TEMP 37.2; O2SAT 99
[2023-07-03 00:49] LABS: Lithium 0.97 mmol/L (0.60-1.20)
[2023-07-03] MEDS: 0.9 % Sodium Chloride 1,000 ML 200 ML IVCONT (03:03)
--- NOTE | 2023-07-03 03:32 | PC.NURSE ---
Spoke with [facility] x2. At start of shift, [facility] urging for reconsult to nephro as lithium levels not yet below 1 as desired. Along with continuing q4hr lithium checks. MD Valdivia made aware. Per request, nephrology Daniel made aware. No need for dialysis. Last lithium level as of midnight below 1.
[2023-07-03 03:45] VITALS: BP 110/70; PULSE 113; RESP 18; TEMP 37.4; O2SAT 96
[2023-07-03] MEDS: Levothyroxine Sodium 25 MCG TABLET PO (05:50)
--- NOTE | 2023-07-03 06:04 | PC.NURSE ---
Patients L arm with increasing swelling overnight from hand to bicep. IV in AC. IVF infusing at 200mls/hr. MD Valdivia made aware. IVF stopped. Arm elevated on pillows. Arm cool to touch. Moves all fingers.
[2023-07-03 06:44] LABS: Lithium 0.85 mmol/L (0.60-1.20)
[2023-07-03 06:58] LABS: Anion Gap 10 (12-20); Blood Urea Nitrogen 18 mg/dL (9-16); Calcium 8.6 mg/dL (8.4-10.2); Carbon Dioxide 21 mmol/L (22-29); Chloride 113 mmol/L (96-108); Creatinine Clr Calc Pharmacy 110.9; Estimated Glomerular Filt Rate > 60; Glucose Random 98 mg/dL (60-115); Potassium 3.5 mmol/L (3.3-5.1); Sodium 140 mmol/L (135-145)
[2023-07-03] MEDS: clonazePAM 1 MG TABLET PO (10:47)
[2023-07-03] MEDS: buPROPion HCl XL 150 MG TAB.ER.24H PO (10:47)
[2023-07-03] MEDS: Buprenorphine/Naloxone 2/0.5mg FILM 1 FILM SUBLINGUAL (10:48)
[2023-07-03] MEDS: bisacodyL 5 MG TABLET.DR 10 MG PO (10:48)
[2023-07-03] MEDS: Multivitamin TABLET 1 TAB PO (10:48)
[2023-07-03] MEDS: Benztropine Mesylate 1 MG TABLET PO ×2 (10:48→21:05)
--- NOTE | 2023-07-03 11:36 | P.PNIM_ITS ---
Subjective Subjective Date of Service: 07/03/23 Interval History: Li level normalized Still tremulous Sitter placed due to trying to pull out her IV, unsteady with walking Review of Systems Review of Systems: Yes Unobtainable due to mental status Physical Exam 2 Vital Signs: Vital Signs: Last Vital Signs Temp 99.3 F 07/03/23 03:45 Pulse 113 H 07/03/23 03:45 Resp 18 07/03/23 03:45 BP 110/70 07/03/23 03:45 Pulse Ox 96 07/03/23 03:45 O2 Del Method Room Air 07/03/23 03:45 BMI result Body Mass Index 25.4 Gen: confused HEENT: sclera anicteric, moist mucus membranes Neck: supple Lungs: clear to auscultation bilaterally Heart: regular rate and rhythm, no murmurs Abd: soft, non-tender, non-distended Ext: no edema Skin: warm/well-perfused Neuro: alert, disoriented, tremor Psych: impaired insight Objective Data Active Medications Acetaminophen (Acetaminophen 325 Mg Tablet) 650 mg PO Q6H PRN PRN Reason: Pain, Mild (Pain Scale 1-3) Al Hydroxide/Mg Hydroxide (Magnesium Hydrox/Alum Hydrox 30 Ml Oral.Susp) 30 ml PO Q6H PRN PRN Reason: Heartburn Benztropine Mesylate (Benztropine Mesylate 1 Mg Tablet) 1 mg PO BID [facility] Last Admin: 07/03/23 10:48 Dose: 1 mg Documented By: BRENDEN Bisacodyl (Bisacodyl 5 Mg Tablet.Dr) 10 mg PO DAILY [facility] Last Admin: 07/03/23 10:48 Dose: 10 mg Documented By: BRENDEN Bisacodyl (Bisacodyl 10 Mg Supp.Rect) 10 mg [place] DAILY PRN PRN Reason: Constipation Buprenorphine/Naloxone (Buprenorphine/Naloxone 2/0.5mg Film) 1 film SUBLINGUAL DAILY [facility] Last Admin: 07/03/23 10:48 Dose: 1 film Documented By: BRENDEN Buprenorphine/Naloxone (Buprenorphine/Naloxone 4/1 Mg Film) 1 film BUCCAL BEDTIME [facility] Last Admin: 07/02/23 20:26 Dose: 1 film Documented By: MIR Bupropion HCl (Bupropion Hcl Xl 150 Mg Tab.Er.24h) 150 mg PO DAILY [facility] Last Admin: 07/03/23 10:47 Dose: 150 mg Documented By: BRENDEN Clonazepam (Clonazepam 1 Mg Tablet) 1 mg PO DAILY [facility] Last Admin: 07/03/23 10:47 Dose: 1 mg Documented By: BRENDEN Clonidine HCl (Clonidine Hcl 0.1 Mg Tablet) 0.1 mg PO Q8H PRN; Protocol PRN Reason: Hypertension Diphenhydramine HCl (Diphenhydramine Hcl 25 Mg Capsule) 25 mg PO Q8H PRN PRN Reason: Anxiety Enoxaparin Sodium (Enoxaparin Sodium 40 Mg/0.4 Ml Syringe) 40 mg SUBCUT Q24H [facility] Last Admin: 07/02/23 23:30 Dose: 40 mg Documented By: MIR Levothyroxine Sodium (Levothyroxine Sodium 25 Mcg Tablet) 25 mcg PO DAILY@0600 [facility] Last Admin: 07/03/23 05:50 Dose: 25 mcg Documented By: MIR Lorazepam (Lorazepam 1 Mg Tablet) 1 mg PO Q6H PRN PRN Reason: anxiety/restlessness Multivitamins/Vitamin C (Multivitamin Tablet) 1 tab PO DAILY [facility] Last Admin: 07/03/23 10:48 Dose: 1 tab Documented By: BRENDEN Nicotine (Nicotine 21 Mg Patch.Td24) 21 mg TRANSDERMA DAILY [facility] Last Admin: 07/03/23 10:56 Dose: Not Given Documented By: BRENDEN Non-Admin Reason: ptf removed patch Nicotine Polacrilex (Nicotine Polacrilex 2 Mg Gum) 4 mg BUCCAL Q2H PRN PRN Reason: Smoking Cessation Non-Formulary Medication (Methylphenidate Hcl) 18 mg PO DAILY [facility] Phenazopyridine HCl (Phenazopyridine Hcl 200 Mg Tablet) 200 mg PO TID PRN PRN Reason: URINARY DISCOMFORT Polyethylene Glycol (Polyethylene Glycol 3350 17 Gm Powd.Pack) 17 gm PO DAILY PRN PRN Reason: Constipation Sodium Chloride (0.9 % Sodium Chloride Flush 3 Ml Syringe) 3 ml IVFLUSH QSHIFT [facility] Last Admin: 07/03/23 09:45 Dose: Not Given Documented By: BRENDEN Non-Admin Reason: No Access Labs 07/01/23 13:41 07/03/23 05:49 Labs: Laboratory Results - last 24 hr 07/02/23 07/02/23 07/03/23 18:11 21:26 00:26 Anion Gap Estim Creat Clear Calc Estimated GFR Random Glucose Calcium [place] 1.14 1.06 0.97 07/03/23 05:49 Anion Gap 10 L Estim Creat Clear Calc 110.9 Estimated GFR > 60 Random Glucose 98 Calcium 8.[address] [place] 0.85 Assessment and Plan (1) [place] toxicity: Status: Acute Plan 32yo F with OUD, ADHD, bipolar disorder sent to ED from [facility] for gait instability + tremor + AMS, found to have lithium toxicity; lihtium stopped 06/28 at [place] acute/chronic lithium toxicity - lithium level normalized; normothermic; normal renal function; normal TSH - seen by Nephrology; IV fluids discontinued - per Psychiatry, holding valproate, topiramate, chlorpromazine, quetiapine, and zolpidem; received Invega 234 mg IM on 06/30/23 - still tremulous, may take longer to resolve OUD - Suboxone bipolar disorder - per Psychiatry, bupropion, clonazepam, prn lorazepam + diphenhydramine + clonidine hypothyroidism - continue LT4 VTE ppx - LMWH dispo - will need inpatient psychiatry once medically cleared In my clinical judgment, the patient requires continued inpatient hospitalization for the following reasons: lithium toxicity Total time managing care of this patient today: 40 minutes. Quality Stroke Does the patient have a stroke diagnosis?: No VTE Prior VTE?: No VTE Risk Level:: Medical - moderate - high VTE Device Contraindication: Treatment Not Indicated VTE Drug Contraindication: N/A - Med Ordered
--- NOTE | 2023-07-03 12:45 | P.CNPS_ITS ---
History of Present Illness Date of Service: 07/03/23 Chief Complaint: [place] toxicity Reason for Consult: lithium toxicity Requesting physician: Aston Gifford Sources of Information: patient interviewed and chart reviewed HPI Narrative: pt somewhat somnolent this afternoon; aboe to open eyes; rambling softly; showing slight body tremors. She appears to have less myoclonus. She reports feeling tired. However, exam limited as pt kept closing her eyes- to better assess mentation and possible increase confusion due to lithium toxicity. Note that even after lithium levels have normalized other neurological symptoms may remained and may take longer to fully resolved. Today, lithium level 0.85, continued lithium level check every 4-6 hrs. [place] travels intracellurlly and can hide there so that evenonce the level comes down can rebound and increase even after hydration and may take longer to be excreted Past Psychiatric History: long mh hx with [facility] hospitalization Review of Systems Review of Systems Yes Unobtainable due to mental condition and Unobtainable due to mental status [facility] Medical History ADHD Anemia FTT (failure to thrive) in adult Hypothyroidism Opiate use Bipolar 1 disorder Diagnostics Vital Signs (24Hr): Vital Signs - 24 hr 07/02/23 15:33 07/02/23 19:22 07/03/23 00:00 Temperature 98.9 F 98.6 F 98.9 F Pulse Rate 96 118 H 118 H Respiratory Rate 18 20 18 Blood Pressure 120/78 103/70 114/74 Pulse Oximetry 99 99 99 Oxygen Delivery Method Room Air Room Air Room Air 07/03/23 03:45 Temperature 99.3 F Pulse Rate 113 H Respiratory Rate 18 Blood Pressure 110/70 Pulse Oximetry 96 Oxygen Delivery Method Room Air BMI result Body Mass Index 25.4 Labs 07/01/23 13:41 07/03/23 05:49 Labs: Laboratory Results - last 48 hr 07/01/23 07/01/23 07/01/23 13:41 16:02 20:46 WBC 5.4 RBC 3.37 L Hgb 10.8 L Hct 31.9 L MCV 94.7 MCH 32.0 MCHC 33.9 RDW 13.7 Plt Count 199 MPV 9.0 L Immature Gran % (Auto) 1.1 H Neut % (Auto) 59.5 Lymph % (Auto) 19.9 L [place] % (Auto) 18.7 H Eos % (Auto) 0.6 Baso % (Auto) 0.2 Lymph # (Auto) 1.1 L [place] # (Auto) 1.0 Eos # (Auto) 0.0 Baso # (Auto) 0.0 Abs Immat Gran (auto) 0.06 H Absolute Neuts (auto) 3.2 Absolute Nucleated RBC 0.000 Nucleated RBC % (auto) 0.0 Sodium 136 Potassium 3.7 Chloride 103 Carbon Dioxide 27 Anion Gap 10 L BUN 29 H Creatinine 0.77 Estim Creat Clear Calc 79.2 Estimated GFR > 60 Random Glucose 108 Calcium 9.5 Magnesium 2.1 Total Bilirubin 0.4 Direct Bilirubin 0.2 AST 25 ALT 16 Alkaline Phosphatase 78 Ammonia 19 Total Creatine Kinase Total Protein 5.7 L Albumin 3.2 L Lipase < 4 L TSH 1.51 Beta HCG, Quant < 2 Urine Color Urine Appearance Urine pH Ur Specific [place] Urine Protein Urine Glucose (UA) Urine Ketones Urine Blood Urine Nitrite Ur Leukocyte Esterase Urine RBC Urine WBC Ur Squamous Epith Cells Urine Bacteria Hyaline Casts Valproic Acid 90.0 [place] 1.80 H* 1.67 H* 1.58 H* 07/02/23 07/02/23 07/02/23 01:49 04:58 06:15 WBC RBC Hgb Hct MCV MCH MCHC RDW Plt Count MPV Immature Gran % (Auto) Neut % (Auto) Lymph % (Auto) [place] % (Auto) Eos % (Auto) Baso % (Auto) Lymph # (Auto) [place] # (Auto) Eos # (Auto) Baso # (Auto) Abs Immat Gran (auto) Absolute Neuts (auto) Absolute Nucleated RBC Nucleated RBC % (auto) Sodium Potassium Chloride Carbon Dioxide Anion Gap BUN Creatinine Estim Creat Clear Calc Estimated GFR Random Glucose Calcium Magnesium Total Bilirubin Direct Bilirubin AST ALT Alkaline Phosphatase Ammonia Total Creatine Kinase Total Protein Albumin Lipase TSH Beta HCG, Quant Urine Color Dark Yellow Urine Appearance Cloudy Urine pH 6.0 Ur Specific [place] 1.025 Urine Protein Trace Urine Glucose (UA) Negative Urine Ketones 15 Urine Blood Negative Urine Nitrite Positive H Ur Leukocyte Esterase Moderate (2+) H Urine RBC 0-2 Urine WBC 11-20 H Ur Squamous Epith Cells 11-20 Urine Bacteria 4+ Hyaline Casts 3-5 Valproic Acid [place] 1.62 H* 1.49 H 05/24/24 05/24/24 05/24/24 09:27 09:27 18:11 WBC RBC Hgb Hct MCV MCH MCHC RDW Plt Count MPV Immature Gran % (Auto) Neut % (Auto) Lymph % (Auto) [place] % (Auto) Eos % (Auto) Baso % (Auto) Lymph # (Auto) [place] # (Auto) Eos # (Auto) Baso # (Auto) Abs Immat Gran (auto) Absolute Neuts (auto) Absolute Nucleated RBC Nucleated RBC % (auto) Sodium 138 Potassium 3.7 Chloride 110 H Carbon Dioxide 27 Anion Gap 5 L BUN 22 H Creatinine 0.65 Estim Creat Clear Calc 93.8 Estimated GFR > 60 Random Glucose 81 Calcium 8.7 D Magnesium Total Bilirubin Direct Bilirubin AST ALT Alkaline Phosphatase Ammonia Total Creatine Kinase 100 Total Protein Albumin Lipase TSH Beta HCG, Quant Urine Color Urine Appearance Urine pH Ur Specific [place] Urine Protein Urine Glucose (UA) Urine Ketones Urine Blood Urine Nitrite Ur Leukocyte Esterase Urine RBC Urine WBC Ur Squamous Epith Cells Urine Bacteria Hyaline Casts Valproic Acid [place] Cancelled 1.38 H 1.14 07/02/23 07/03/23 07/03/23 21:26 00:26 05:49 WBC RBC Hgb Hct MCV MCH MCHC RDW Plt Count MPV Immature Gran % (Auto) Neut % (Auto) Lymph % (Auto) [place] % (Auto) Eos % (Auto) Baso % (Auto) Lymph # (Auto) [place] # (Auto) Eos # (Auto) Baso # (Auto) Abs Immat Gran (auto) Absolute Neuts (auto) Absolute Nucleated RBC Nucleated RBC % (auto) Sodium 140 Potassium 3.5 Chloride 113 H Carbon Dioxide 21 L Anion Gap 10 L BUN 18 H Creatinine 0.55 Estim Creat Clear Calc 110.9 Estimated GFR > 60 Random Glucose 98 Calcium 8.6 Magnesium Total Bilirubin Direct Bilirubin AST ALT Alkaline Phosphatase Ammonia Total Creatine Kinase Total Protein Albumin Lipase TSH Beta HCG, Quant Urine Color Urine Appearance Urine pH Ur Specific [place] Urine Protein Urine Glucose (UA) Urine Ketones Urine Blood Urine Nitrite Ur Leukocyte Esterase Urine RBC Urine WBC Ur Squamous Epith Cells Urine Bacteria Hyaline Casts Valproic Acid [place] 1.06 0.97 0.85 Imaging Radiology Impressions: ITS Impressions Head CT 07/01/23 15:29 IMPRESSION: No acute intracranial pathology. Mental Status Exam Mental Status Exam Narrative: pt in bed, somewhat anxious but in no acute distress. She reports feeling cold and tired. visible clonus alert, oriented to place, month, year insight/judgment: limited x 2. Medications Medications Current Medications Acetaminophen (Acetaminophen 325 Mg Tablet) 650 mg PO Q6H PRN PRN Reason: Pain, Mild (Pain Scale 1-3) Al Hydroxide/Mg Hydroxide (Magnesium Hydrox/Alum Hydrox 30 Ml Oral.Susp) 30 ml PO Q6H PRN PRN Reason: Heartburn Benztropine Mesylate (Benztropine Mesylate 1 Mg Tablet) 1 mg PO BID [facility] Last Admin: 07/03/23 10:48 Dose: 1 mg Bisacodyl (Bisacodyl 5 Mg Tablet.Dr) 10 mg PO DAILY [facility] Last Admin: 07/03/23 10:48 Dose: 10 mg Bisacodyl (Bisacodyl 10 Mg Supp.Rect) 10 mg [place] DAILY PRN PRN Reason: Constipation Buprenorphine/Naloxone (Buprenorphine/Naloxone 2/0.5mg Film) 1 film SUBLINGUAL DAILY [facility] Last Admin: 07/03/23 10:48 Dose: 1 film Buprenorphine/Naloxone (Buprenorphine/Naloxone 4/1 Mg Film) 1 film BUCCAL BEDTIME [facility] Last Admin: 07/02/23 20:26 Dose: 1 film Bupropion HCl (Bupropion Hcl Xl 150 Mg Tab.Er.24h) 150 mg PO DAILY [facility] Last Admin: 07/03/23 10:47 Dose: 150 mg Clonazepam (Clonazepam 1 Mg Tablet) 1 mg PO DAILY [facility] Last Admin: 07/03/23 10:47 Dose: 1 mg Clonidine HCl (Clonidine Hcl 0.1 Mg Tablet) 0.1 mg PO Q8H PRN; Protocol PRN Reason: Hypertension Diphenhydramine HCl (Diphenhydramine Hcl 25 Mg Capsule) 25 mg PO Q8H PRN PRN Reason: Anxiety Enoxaparin Sodium (Enoxaparin Sodium 40 Mg/0.4 Ml Syringe) 40 mg SUBCUT Q24H [facility] Last Admin: 07/02/23 23:30 Dose: 40 mg Levothyroxine Sodium (Levothyroxine Sodium 25 Mcg Tablet) 25 mcg PO DAILY@0600 [facility] Last Admin: 07/03/23 05:50 Dose: 25 mcg Lorazepam (Lorazepam 1 Mg Tablet) 1 mg PO Q6H PRN PRN Reason: anxiety/restlessness Multivitamins/Vitamin C (Multivitamin Tablet) 1 tab PO DAILY [facility] Last Admin: 07/03/23 10:48 Dose: 1 tab Nicotine (Nicotine 21 Mg Patch.Td24) 21 mg TRANSDERMA DAILY [facility] Last Admin: 07/03/23 10:56 Dose: Not Given Nicotine Polacrilex (Nicotine Polacrilex 2 Mg Gum) 4 mg [place]CC[place] Q2H PRN PRN Reason: Smoking Cessation Non-Formulary Medication (Methylphenidate Hcl) 18 mg PO DAILY [facility] Phenazopyridine HCl (Phenazopyridine Hcl 200 Mg Tablet) 200 mg PO TID PRN PRN Reason: URINARY DISCOMFORT Polyethylene Glycol (Polyethylene Glycol 3350 17 Gm Powd.Pack) 17 gm PO DAILY PRN PRN Reason: Constipation Sodium Chloride (0.9 % Sodium Chloride Flush 3 Ml Syringe) 3 ml IVFLUSH QSHIFT [facility] Last Admin: 07/03/23 09:45 Dose: Not Given Allergies Allergies Allergy/AdvReac Type Severity Reaction Status Date / Time No Known Allergies Allergy Verified 07/01/23 13:21 Assessment & Plan Assessment & Plan (1) [place] toxicity: Qualifiers: Encounter type: sequela Injury intent: accidental or unintentional Q ualified Code(s): T56.891S - Toxic effect of other metals, accidental (unintentional), sequela Status: Acute Code(s): T56.891A - Toxic effect of other metals, accidental (unintentional), initial encounter Plan 32yo F with OUD, ADHD, bipolar disorder sent to ED from [facility] for gait instability + tremor + AMS, found to have lithium toxicity; lihtium stopped 06/28 at [place] acute/chronic lithium toxicity - lithium level normalized; normothermic; normal renal function; normal TSH - seen by Nephrology; IV fluids discontinued - per Psychiatry, holding valproate, topiramate, chlorpromazine, quetiapine, and zolpidem; received Invega 234 mg IM on 06/30/23 - still tremulous, may take longer to resolve OUD - Suboxone bipolar disorder - per Psychiatry, bupropion, clonazepam, prn lorazepam + diphenhydramine + clonidine hypothyroidism - continue LT4 VTE ppx - LMWH dispo - will need inpatient psychiatry once medically cleared In my clinical judgment, the patient requires continued inpatient hospitalization for the following reasons: lithium toxicity psychiatry continue to encourage hydration, check lithium levels every 4-6 hours; consider neurolgy consult; when medically cleared suggest care team eval and work with to transfer back to [facility] ([facility]3] Total time managing care of this patient today __60__ minutes.
[2023-07-03 15:13] VITALS: BP 120/79; PULSE 113; RESP 20; TEMP 36.2; O2SAT 100
--- NOTE | 2023-07-03 16:04 | MHC.CM.PN ---
CM met with Patient, Sister and Mother at bedside; they do not want Patient returning to [facility]. Per Psych [employer] documentation today, Patient will need IPLOC once medically cleared. CM explained that Patient will also be evaluated by our Care Team who will assist with dc planning. Patient's Mother wants Patient to dc home with her; Patient's Sister did not feel this is a good plan. CM will consult with Guardian once closer to dc. CM will follow.,
[2023-07-03] MEDS: bisacodyL 10 MG SUPP.RECT PR (18:56)
[2023-07-03] MEDS: Enoxaparin Sodium 40 MG/0.4 ML SYRINGE SUBCUT (18:59)
[2023-07-03 20:00] VITALS: BP 119/81; PULSE 126; RESP 18; TEMP 36.9; O2SAT 99
[2023-07-03] MEDS: Buprenorphine/Naloxone 4/1 mg FILM 1 FILM BUCCAL (21:05)
[2023-07-03] MEDS: Ondansetron ODT 4 MG TAB.RAPDIS TRANSLINGU (22:22)
[2023-07-03] MEDS: LORazepam 1 MG TABLET PO (22:22)
[2023-07-03 23:31] VITALS: BP 110/70; PULSE 117; RESP 18; TEMP 36.9; O2SAT 98
[2023-07-04] MEDS: Levothyroxine Sodium 25 MCG TABLET PO (06:07)
[2023-07-04 08:00] VITALS: BP 107/62; PULSE 112; RESP 16; TEMP 36.8; O2SAT 98
[2023-07-04 08:39] LABS: Lithium 0.62 mmol/L (0.60-1.20)
[2023-07-04 08:46] LABS: Anion Gap 11 (12-20); Blood Urea Nitrogen 19 mg/dL (9-16); Calcium 8.8 mg/dL (8.4-10.2); Carbon Dioxide 21 mmol/L (22-29); Chloride 110 mmol/L (96-108); Creatinine Clr Calc Pharmacy 101.7; Estimated Glomerular Filt Rate > 60; Glucose Random 117 mg/dL (60-115); Potassium 3.5 mmol/L (3.3-5.1); Sodium 138 mmol/L (135-145)
[2023-07-04] MEDS: buPROPion HCl XL 150 MG TAB.ER.24H PO (09:37)
[2023-07-04] MEDS: Acetaminophen 325 MG TABLET 650 MG PO (09:37)
[2023-07-04] MEDS: Buprenorphine/Naloxone 2/0.5mg FILM 1 FILM SUBLINGUAL (09:37)
[2023-07-04] MEDS: Benztropine Mesylate 1 MG TABLET PO ×2 (09:37→20:51)
[2023-07-04] MEDS: bisacodyL 5 MG TABLET.DR 10 MG PO (09:37)
[2023-07-04] MEDS: clonazePAM 1 MG TABLET PO (09:37)
[2023-07-04] MEDS: Multivitamin TABLET 1 TAB PO (09:37)
--- NOTE | 2023-07-04 11:10 | P.PNIM_ITS ---
Subjective Subjective Date of Service: 07/04/23 Interval History: much more awake, less tremulous Review of Systems Review of Systems: Yes all other systems are reviewed and are negative Physical Exam 2 Vital Signs: Vital Signs: Last Vital Signs Temp 98.3 F 07/04/23 08:00 Pulse 112 H 07/04/23 08:00 Resp 16 07/04/23 08:00 BP 107/62 07/04/23 08:00 Pulse Ox 98 07/04/23 08:00 O2 Del Method Room Air 07/04/23 08:00 BMI result Body Mass Index 25.4 Gen: alert, pressured speech HEENT: sclera anicteric, moist mucus membranes Neck: supple Lungs: clear to auscultation bilaterally Heart: regular rate and rhythm, no murmurs Abd: soft, non-tender, non-distended Ext: no edema Skin: warm/well-perfused Neuro: alert, tremulous Psych: impaired insight Objective Data Active Medications Acetaminophen (Acetaminophen 325 Mg Tablet) 650 mg PO Q6H PRN PRN Reason: Pain, Mild (Pain Scale 1-3) Last Admin: 07/04/23 09:37 Dose: 650 mg Documented By: KUN Al Hydroxide/Mg Hydroxide (Magnesium Hydrox/Alum Hydrox 30 Ml Oral.Susp) 30 ml PO Q6H PRN PRN Reason: Heartburn Benztropine Mesylate (Benztropine Mesylate 1 Mg Tablet) 1 mg PO BID [facility] Last Admin: 07/04/23 09:37 Dose: 1 mg Documented By: KUN Bisacodyl (Bisacodyl 5 Mg Tablet.Dr) 10 mg PO DAILY [facility] Last Admin: 07/04/23 09:37 Dose: 10 mg Documented By: KUN Bisacodyl (Bisacodyl 10 Mg Supp.Rect) 10 mg [place] DAILY PRN PRN Reason: Constipation Last Admin: 07/03/23 18:56 Dose: 10 mg Documented By: KUN Buprenorphine/Naloxone (Buprenorphine/Naloxone 2/0.5mg Film) 1 film SUBLINGUAL DAILY [facility] Last Admin: 07/04/23 09:37 Dose: 1 film Documented By: KUN Buprenorphine/Naloxone (Buprenorphine/Naloxone 4/1 Mg Film) 1 film BUCCAL BEDTIME [facility] Last Admin: 07/03/23 21:05 Dose: 1 film Documented By: HORACIO Bupropion HCl (Bupropion Hcl Xl 150 Mg Tab.Er.24h) 150 mg PO DAILY [facility] Last Admin: 07/04/23 09:37 Dose: 150 mg Documented By: KUN Clonazepam (Clonazepam 1 Mg Tablet) 1 mg PO DAILY [facility] Last Admin: 07/04/23 09:37 Dose: 1 mg Documented By: KUN Clonidine HCl (Clonidine Hcl 0.1 Mg Tablet) 0.1 mg PO Q8H PRN; Protocol PRN Reason: Hypertension Diphenhydramine HCl (Diphenhydramine Hcl 25 Mg Capsule) 25 mg PO Q8H PRN PRN Reason: Anxiety Enoxaparin Sodium (Enoxaparin Sodium 40 Mg/0.4 Ml Syringe) 40 mg SUBCUT Q24H [facility] Last Admin: 07/03/23 18:59 Dose: 40 mg Documented By: KUN Levothyroxine Sodium (Levothyroxine Sodium 25 Mcg Tablet) 25 mcg PO DAILY@0600 [facility] Last Admin: 07/04/23 06:07 Dose: 25 mcg Documented By: HORACIO Lorazepam (Lorazepam 1 Mg Tablet) 1 mg PO Q6H PRN PRN Reason: anxiety/restlessness Last Admin: 07/03/23 22:22 Dose: 1 mg Documented By: HORACIO Multivitamins/Vitamin C (Multivitamin Tablet) 1 tab PO DAILY [facility] Last Admin: 07/04/23 09:37 Dose: 1 tab Documented By: KUN Nicotine (Nicotine 21 Mg Patch.Td24) 21 mg TRANSDERMA DAILY [facility] Last Admin: 07/04/23 09:45 Dose: Not Given Documented By: KUN Non-Admin Reason: Patient Refused Nicotine Polacrilex (Nicotine Polacrilex 2 Mg Gum) 4 mg [place]CC[place] Q2H PRN PRN Reason: Smoking Cessation Non-Formulary Medication (Methylphenidate Hcl) 18 mg PO DAILY [facility] Ondansetron HCl (Ondansetron Odt 4 Mg Tab.Rapdis) 4 mg TRANSLINGU Q6H PRN PRN Reason: Nausea and Vomiting Last Admin: 07/03/23 22:22 Dose: 4 mg Documented By: HORACIO Phenazopyridine HCl (Phenazopyridine Hcl 200 Mg Tablet) 200 mg PO TID PRN PRN Reason: URINARY DISCOMFORT Polyethylene Glycol (Polyethylene Glycol 3350 17 Gm Powd.Pack) 17 gm PO DAILY PRN PRN Reason: Constipation Sodium Chloride (0.9 % Sodium Chloride Flush 3 Ml Syringe) 3 ml IVFLUSH QSHIFT [facility] Last Admin: 07/04/23 09:41 Dose: Not Given Documented By: KUN Non-Admin Reason: Patient Refused Labs 07/01/23 13:41 07/04/23 08:17 Labs: Laboratory Results - last 24 hr 07/04/23 08:17 Anion Gap 11 L Estim Creat Clear Calc 101.7 Estimated GFR > 60 Random Glucose 117 H Calcium 8.8 [place] 0.62 Microbiology Microbiology Results: Microbiology 07/02/23 Unknown Urine Culture - Preliminary Urine clean catch - Urine laughlin top Klebsiella aerogenes Assessment and Plan (1) [place] toxicity: Status: Acute Plan 32yo F with OUD, ADHD, bipolar disorder sent to ED from [facility] for gait instability + tremor + AMS, found to have lithium toxicity; lihtium stopped 06/28 at [place] acute/chronic lithium toxicity - lithium level normalized; normothermic; normal renal function; normal TSH - seen by Nephrology; IV fluids discontinued - per Psychiatry, holding valproate, topiramate, chlorpromazine, quetiapine, and zolpidem; received Invega 234 mg IM on 06/30/23 - less tremulous - medically cleared for return to [place] but per Case Mgmt family does not want her back there so will have to search for another inpt psychiatry bed Klebsiella aerogenes UTI - levofloxacin 07/03-07/05 OUD - Suboxone bipolar disorder - per Psychiatry, bupropion, clonazepam, prn lorazepam + diphenhydramine + clonidine hypothyroidism - continue LT4 VTE ppx - LMWH dispo - will need inpatient psychiatry In my clinical judgment, the patient requires continued inpatient hospitalization for the following reasons: bed search Total time managing care of this patient today: 35 minutes. Quality Stroke Does the patient have a stroke diagnosis?: No VTE Prior VTE?: No VTE Risk Level:: Medical - moderate - high VTE Device Contraindication: Treatment Not Indicated VTE Drug Contraindication: N/A - Med Ordered
[2023-07-04 12:00] VITALS: BP 99/64; PULSE 97; RESP 16; TEMP 36.1; O2SAT 95
[2023-07-04] MEDS: levoFLOXacin 250 MG TABLET PO (12:49)
--- NOTE | 2023-07-04 13:06 | MHC.CM.PN ---
Per Care Team Specialist/Ginette, Guardian wants Patient to return to [facility] (Mother and Sister had requested that Patient not return there).Ginette is trying to arrange for [facility] [place] speak with the Doctor @ [place], along with family to discuss Patient's [place] levels at time of dc from [place]. CM will follow,
[2023-07-04 16:00] VITALS: BP 100/61; PULSE 95; RESP 16; TEMP 36.3; O2SAT 95
[2023-07-04] MEDS: bisacodyL 10 MG SUPP.RECT PR (18:24)
[2023-07-04 20:00] VITALS: BP 121/89; PULSE 118; RESP 20; TEMP 36.7; O2SAT 99
[2023-07-04] MEDS: LORazepam 1 MG TABLET PO (20:51)
[2023-07-04] MEDS: Buprenorphine/Naloxone 4/1 mg FILM 1 FILM BUCCAL (20:51)
[2023-07-04] MEDS: diphenhydrAMINE HCL 25 MG CAPSULE PO (20:53)
[2023-07-05] VITALS: BP 104/78; PULSE 107; RESP 20; TEMP 37.1; O2SAT 99
[2023-07-05] MEDS: 0.9 % Sodium Chloride Flush 3 ML SYRINGE IVFLUSH ×2 (01:02→09:28)
[2023-07-05] MEDS: Acetaminophen 325 MG TABLET 650 MG PO (01:37)
[2023-07-05] MEDS: LORazepam 1 MG TABLET PO ×2 (03:15→20:12)
[2023-07-05 04:00] VITALS: BP 111/77; PULSE 114; RESP 20; TEMP 36.2; O2SAT 98
[2023-07-05 06:31] LABS: Lithium 0.53 mmol/L (0.60-1.20)
[2023-07-05] MEDS: Levothyroxine Sodium 25 MCG TABLET PO (06:33)
[2023-07-05 06:39] LABS: Anion Gap 7 (12-20); Blood Urea Nitrogen 19 mg/dL (9-16); Calcium 8.5 mg/dL (8.4-10.2); Carbon Dioxide 25 mmol/L (22-29); Chloride 108 mmol/L (96-108); Creatinine Clr Calc Pharmacy 103.4; Estimated Glomerular Filt Rate > 60; Glucose Random 125 mg/dL (60-115); Potassium 3.3 mmol/L (3.3-5.1); Sodium 137 mmol/L (135-145)
[2023-07-05 07:32] VITALS: BP 102/62; PULSE 90; RESP 18; TEMP 36.2; O2SAT 99
[2023-07-05] MEDS: levoFLOXacin 250 MG TABLET PO (09:27)
[2023-07-05] MEDS: buPROPion HCl XL 150 MG TAB.ER.24H PO (09:27)
[2023-07-05] MEDS: Benztropine Mesylate 1 MG TABLET PO (09:27)
[2023-07-05] MEDS: Buprenorphine/Naloxone 2/0.5mg FILM 1 FILM SUBLINGUAL (09:27)
[2023-07-05] MEDS: bisacodyL 5 MG TABLET.DR 10 MG PO (09:27)
[2023-07-05] MEDS: Multivitamin TABLET 1 TAB PO (09:27)
[2023-07-05] MEDS: clonazePAM 1 MG TABLET PO (09:28)
[2023-07-05 11:15] VITALS: BP 98/62; PULSE 88; RESP 18; TEMP 36.1; O2SAT 99
--- NOTE | 2023-07-05 12:36 | HO.PM.IMPN ---
Subjective Subjective Date of Service: 07/05/23 Interval History: less tremulous awaiting transfer back to [facility] Review of Systems Review of Systems: Yes all other systems are reviewed and are negative Physical Exam Vital Signs: Vital Signs: Last Vital Signs Temp 97.0 F 07/05/23 11:15 Pulse 88 07/05/23 11:15 Resp 18 07/05/23 11:15 BP 98/62 07/05/23 11:15 Pulse Ox 99 07/05/23 11:15 O2 Del Method Room Air 07/05/23 11:15 BMI result Body Mass Index 25.4 Gen: alert, pressured speech HEENT: sclera anicteric, moist mucus membranes Neck: supple Lungs: clear to auscultation bilaterally Heart: regular rate and rhythm, no murmurs Abd: soft, non-tender, non-distended Ext: no edema Skin: warm/well-perfused Neuro: alert, mild tremor Psych: impaired insight Objective Data Active Medications Acetaminophen (Acetaminophen 325 Mg Tablet) 650 mg PO Q6H PRN PRN Reason: Pain, Mild (Pain Scale 1-3) Last Admin: 07/05/23 01:37 Dose: 650 mg Documented By: ROME Al Hydroxide/Mg Hydroxide (Magnesium Hydrox/Alum Hydrox 30 Ml Oral.Susp) 30 ml PO Q6H PRN PRN Reason: Heartburn Benztropine Mesylate (Benztropine Mesylate 1 Mg Tablet) 1 mg PO BID [facility] Last Admin: 07/05/23 09:27 Dose: 1 mg Documented By: VAHE Bisacodyl (Bisacodyl 5 Mg Tablet.Dr) 10 mg PO DAILY [facility] Last Admin: 07/05/23 09:27 Dose: 10 mg Documented By: VAHE Bisacodyl (Bisacodyl 10 Mg Supp.Rect) 10 mg [place] DAILY PRN PRN Reason: Constipation Last Admin: 07/04/23 18:24 Dose: 10 mg Documented By: KUN Buprenorphine/Naloxone (Buprenorphine/Naloxone 2/0.5mg Film) 1 film SUBLINGUAL DAILY [facility] Last Admin: 07/05/23 09:27 Dose: 1 film Documented By: VAHE Buprenorphine/Naloxone (Buprenorphine/Naloxone 4/1 Mg Film) 1 film BUCCAL BEDTIME [facility] Last Admin: 07/04/23 20:51 Dose: 1 film Documented By: ROME Bupropion HCl (Bupropion Hcl Xl 150 Mg Tab.Er.24h) 150 mg PO DAILY [facility] Last Admin: 07/05/23 09:27 Dose: 150 mg Documented By: VAHE Clonazepam (Clonazepam 1 Mg Tablet) 1 mg PO DAILY [facility] Last Admin: 07/05/23 09:28 Dose: 1 mg Documented By: VAHE Clonidine HCl (Clonidine Hcl 0.1 Mg Tablet) 0.1 mg PO Q8H PRN; Protocol PRN Reason: Hypertension Diphenhydramine HCl (Diphenhydramine Hcl 25 Mg Capsule) 25 mg PO Q8H PRN PRN Reason: Anxiety Last Admin: 07/04/23 20:53 Dose: 25 mg Documented By: ROME Enoxaparin Sodium (Enoxaparin Sodium 40 Mg/0.4 Ml Syringe) 40 mg SUBCUT Q24H [facility] Last Admin: 07/04/23 18:03 Dose: Not Given Documented By: KUN Non-Admin Reason: Patient Refused Levofloxacin (Levofloxacin 250 Mg Tablet) 250 mg PO Q24H [facility] Stop: 07/06/23 11:16 Last Admin: 07/05/23 09:27 Dose: 250 mg Documented By: VAHE Levothyroxine Sodium (Levothyroxine Sodium 25 Mcg Tablet) 25 mcg PO DAILY@0600 [facility] Last Admin: 07/05/23 06:33 Dose: 25 mcg Documented By: ROME Lorazepam (Lorazepam 1 Mg Tablet) 1 mg PO Q6H PRN PRN Reason: anxiety/restlessness Last Admin: 07/05/23 03:15 Dose: 1 mg Documented By: ROME Multivitamins/Vitamin C (Multivitamin Tablet) 1 tab PO DAILY [facility] Last Admin: 07/05/23 09:27 Dose: 1 tab Documented By: VAHE Nicotine (Nicotine 21 Mg Patch.Td24) 21 mg TRANSDERMA DAILY [facility] Last Admin: 07/05/23 09:28 Dose: Not Given Documented By: VAHE Non-Admin Reason: Patient Refused Nicotine Polacrilex (Nicotine Polacrilex 2 Mg Gum) 4 mg BUCCAL Q2H PRN PRN Reason: Smoking Cessation Non-Formulary Medication (Methylphenidate Hcl) 18 mg PO DAILY [facility] Ondansetron HCl (Ondansetron Odt 4 Mg Tab.Rapdis) 4 mg TRANSLINGU Q6H PRN PRN Reason: Nausea and Vomiting Last Admin: 07/03/23 22:22 Dose: 4 mg Documented By: HORACIO Phenazopyridine HCl (Phenazopyridine Hcl 200 Mg Tablet) 200 mg PO TID PRN PRN Reason: URINARY DISCOMFORT Polyethylene Glycol (Polyethylene Glycol 3350 17 Gm Powd.Pack) 17 gm PO DAILY PRN PRN Reason: Constipation Sodium Chloride (0.9 % Sodium Chloride Flush 3 Ml Syringe) 3 ml IVFLUSH QSHIFT NOMAN Last Admin: 07/05/23 09:28 Dose: 3 ml Documented By: VAHE Labs 07/01/23 13:41 07/05/23 05:44 Labs: Laboratory Results - last 24 hr 07/05/23 05:44 Hold Purple Top SEE NOTE Anion Gap 7 L Estim Creat Clear Calc 103.4 Estimated GFR > 60 Random Glucose 125 H Calcium 8.5 Cash 0.53 L Microbiology Microbiology Results: Microbiology 07/02/23 Unknown Urine Culture - Final Urine clean catch - Urine laughlin top Klebsiella aerogenes Assessment and Plan (1) Cash toxicity: Status: Acute Plan d5 32yo F with OUD, ADHD, bipolar disorder sent to ED from [facility] for gait instability + tremor + AMS, found to have lithium toxicity; lihtium stopped 06/28 at [facility] acute/chronic lithium toxicity - lithium level normalized; normothermic; normal renal function; normal TSH - seen by Nephrology; IV fluids discontinued - per Psychiatry, holding valproate, topiramate, chlorpromazine, quetiapine, and zolpidem; received Invega 234 mg IM on 06/30/23 - less tremulous - medically cleared for return to [facility]; awaiting call back from their psychiatrist re: pt's excess lithium level. Pt has guardian and has to go back to [facility] Klebsiella aerogenes UTI - levofloxacin 07/03-07/05 OUD - Suboxone bipolar disorder - per Psychiatry, bupropion, clonazepam, prn lorazepam + diphenhydramine + clonidine hypothyroidism - continue LT4 VTE ppx - LMWH dispo - will need inpatient psychiatry In my clinical judgment, the patient requires continued inpatient hospitalization for the following reasons: transfer to [facility] Total time managing care of this patient today: 35 minutes. Quality Stroke Does the patient have a stroke diagnosis?: No VTE Prior VTE?: No VTE Risk Level:: Medical - moderate - high VTE Device Contraindication: Treatment Not Indicated VTE Drug Contraindication: N/A - Med Ordered
[2023-07-05] MEDS: Magnesium Hydrox/Alum Hydrox 30 ML ORAL.SUSP PO (14:39)
--- NOTE | 2023-07-05 14:43 | MHC.CM.PN ---
EMR reviewed and per MD rounds, pt is medically cleared for discharge pending re-acceptance from [facility]. Multiple calls placed to [facility], unable to reach anyone. Was finally able to reach someone who answered the phone, they said to fax pts clinicals to them and someone will review clinicals to see if they will accept her. Clinicals faxed to [facility] at [phone]. Call placed to pts guardian, voicemail left, awaiting return call.
[2023-07-05 15:30] VITALS: BP 97/55; PULSE 97; RESP 17; TEMP 36.7; O2SAT 99
[2023-07-05 20:00] VITALS: BP 113/77; PULSE 102; RESP 16; TEMP 36.4; O2SAT 99
[2023-07-05] MEDS: cloNIDine HCL 0.1 MG TABLET PO (20:11)
[2023-07-05] MEDS: Buprenorphine/Naloxone 4/1 mg FILM 1 FILM BUCCAL (20:17)
[2023-07-05] MEDS: Enoxaparin Sodium 40 MG/0.4 ML SYRINGE SUBCUT (20:21)
[2023-07-06] VITALS: BP 113/73; PULSE 102; RESP 16; TEMP 36.2; O2SAT 95
[2023-07-06] MEDS: Zolpidem Tartrate 5 MG TABLET PO (01:21)
[2023-07-06 03:43] VITALS: BP 108/50; PULSE 92; RESP 16; TEMP 36.2; O2SAT 100
[2023-07-06] MEDS: LORazepam 1 MG TABLET PO (05:18)
[2023-07-06] MEDS: Levothyroxine Sodium 25 MCG TABLET PO (05:18)
[2023-07-06 07:24] VITALS: BP 90/51; PULSE 74; RESP 18; TEMP 35.9; O2SAT 100
[2023-07-06] MEDS: Benztropine Mesylate 1 MG TABLET PO (09:17)
[2023-07-06] MEDS: 0.9 % Sodium Chloride Flush 3 ML SYRINGE IVFLUSH (09:17)
[2023-07-06] MEDS: buPROPion HCl XL 150 MG TAB.ER.24H PO (09:17)
[2023-07-06] MEDS: bisacodyL 5 MG TABLET.DR 10 MG PO (09:17)
[2023-07-06] MEDS: Buprenorphine/Naloxone 2/0.5mg FILM 1 FILM SUBLINGUAL (09:17)
[2023-07-06] MEDS: clonazePAM 1 MG TABLET PO (09:17)
[2023-07-06] MEDS: Multivitamin TABLET 1 TAB PO (09:18)
[2023-07-06] MEDS: Nicotine 21 MG PATCH.TD24 TRANSDERMA (09:18)
[2023-07-06] MEDS: Nicotine Polacrilex 2 MG GUM 4 MG BUCCAL (09:22)
--- NOTE | 2023-07-06 10:24 | P.DS_ITS ---
DS: Providers Provider Date of Service: 07/06/23 Date of admission: 07/01/23 18:44 Date of discharge: 07/06/23 Primary care physician: Unknown Physician Consults: 07/01/23 19:23 Consult to Psychiatry Routine Consulting Provider: Psych Covering Reason for consultation: Elevated lithium levels, pt from [facility] 07/02/23 06:40 Consult to Nephrology Stat Consulting Provider: [facility] Reason for consultation: dialysis in this patient with chronic lithium toxicity 07/03/23 08:05 Consult for Sitter Routine Reason for consultation: not safe 07/03/23 15:34 Consult to Care Team Routine Comment: Reason for consultation: level of care assessment 07/04/23 11:14 Consult to Care Team Stat Comment: Reason for consultation: Per Case Mgmt family does not want her to go back to [facility]; needs bed sea DS: Diagnosis Discharge Diagnosis (1) [place] toxicity: Status: Acute (2) Adverse reaction to drug: Status: Acute (3) Bipolar disorder: Status: Acute (4) Urinary tract infection: Status: Acute DS: Summary Hospital Course Hospital Course: From the history and physical by the admitting hospitalist, CLAUDIA Jama, 07/01/23: Pt is a 32-year-old female with a PMH significant for?hypothyroidism, opiate use disorder, ADHD, and bipolar disorder who presents to the ED from [facility]?for evaluation unsteadiness on feet and tremors for the past week. Patient is somnolent and barely arousable at time of interview and exam, incapable of answering questions. HPI is thus obtained from [facility] staff who was at bedside and chart and provider review. Patient has apparently been in and out of psychiatric institutions for many years; has been hospitalized at [facility] for at least 1 year. 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 Has also been unsteady on her feet, and complaining on and off of lower abdominal pain. Unclear whether or not she has been experiencing nausea and vomiting. Patient apparently has severe attention seeking behaviors, and will act out if she feels she is not receiving enough attention. Apparently has been having difficulty eating and drinking past few days. Patient's lithium was held and d/c'd on 06/28. Psychiatry was consulted in the ED who felt patient was experiencing lithium toxicity rather than serotonin syndrome. In the ED pt was tachycardic up to 117 with slightly elevated BP of 118/90. No fever Labs were significant for H&H 10.8/31.9, BUN 29, total protein 5.7, albumin 3.2, and initial lithium dose 1.80 with repeat down trending to 1.67. CT?of head found no acute intracranial pathology. EKG demonstrated sinus tachycardia of 110 with nonspecific T-wave inversions in V1 and V2 without evidence of significant ST elevations or depressions. Pt was treated with lorazepam and IVF. Pt will be admitted to the hospital for treatment and further evaluation of lithium toxicity. 32yo F with OUD, ADHD, and bipolar disorder who was sent to ED from [facility] for gait instability + tremor + AMS. She was found to have lithium toxicity despite lithium having been stopped 06/29/23. She was admitted to the telemetry unit with a sitter and with Psychiatry and Nephrology consultation. She underwent IV fluid hydration. [place] level came down to below therapeutic levels. Sodium and creatinine remained normal. Mental status improved and her tremor largely resolved. Clonazepam, bupropion, lorazepam, clonidine, and diphenhydramine were continued; she had received Invega 234 mg IM on 06/30/23 at [facility]. She was discharged back to [facility] on 07/06/23. Its seems she is a hypometabolizer of lithium and should not be on lithium; I discussed this with her physician at [facility], Dr Dr Saleem. She as also treated fully for a Klebsiella aerogenes UTI with 3 days of levofloxacin. Time Attestation Discharge Coordination Time (in mins): 45 Quality: Safe Use of Opioids Does Pt have an Active Cancer Diagnosis on the Problem List?: No Quality: Stroke Does the patient have a stroke diagnosis?: No Physical Exam Vital Signs: Vital Signs: Last Vital Signs Temp 96.7 F L 07/06/23 07:24 Pulse 74 07/06/23 07:24 Resp 18 07/06/23 07:24 BP 90/51 L 07/06/23 07:24 Pulse Ox 100 07/06/23 07:24 O2 Del Method Room Air 07/06/23 07:24 BMI result Body Mass Index 25.4 Gen: alert, pressured speech HEENT: sclera anicteric, moist mucus membranes Neck: supple Lungs: clear to auscultation bilaterally Heart: regular rate and rhythm, no murmurs Abd: soft, non-tender, non-distended Ext: no edema Skin: warm/well-perfused Neuro: alert, very slight tremor Psych: impaired insight DS: Data Data Completed and Pending Completed studies during hospitalization [Text1]: Laboratory Results WBC 5.4 X10*3/uL (4.8-10.8) 07/01/23 13:41 RBC 3.37 X10*6/uL (4.20-5.50) L 07/01/23 13:41 Hgb 10.8 g/dl (12.0-16.0) L 07/01/23 13:41 Hct 31.9 % (37.0-47.0) L 07/01/23 13:41 MCV 94.7 fL (80.0-98.0) 07/01/23 13:41 MCH 32.0 pg (27.0-33.0) 07/01/23 13:41 MCHC 33.9 g/dl (31.0-35.0) 07/01/23 13:41 RDW 13.7 % (11.0-16.0) 07/01/23 13:41 Plt Count 199 X10*3/uL (160-400) 07/01/23 13:41 MPV 9.0 fL (9.4-12.3) L 07/01/23 13:41 Immature Gran % (Auto) 1.1 % (0.0-0.4) H 07/01/23 13:41 Neut % (Auto) 59.5 % (45-73) 07/01/23 13:41 Lymph % (Auto) 19.9 % (20-40) L 07/01/23 13:41 Giles % (Auto) 18.7 % (2-11) H 07/01/23 13:41 Eos % (Auto) 0.6 % (0-4) 07/01/23 13:41 Baso % (Auto) 0.2 % (0-2) 07/01/23 13:41 Lymph # (Auto) 1.1 X10*3/uL (1.2-4.9) L 07/01/23 13:41 Giles # (Auto) 1.0 X10*3/uL (0.1-1.2) 07/01/23 13:41 Eos # (Auto) 0.0 X10*3/uL (0.0-0.4) 07/01/23 13:41 Baso # (Auto) 0.0 X10*3/uL (0.0-0.2) 07/01/23 13:41 Abs Immat Gran (auto) 0.06 X10*3/uL (0.00-0.03) H 07/01/23 13:41 Absolute Neuts (auto) 3.2 x10*3/uL (2.0-8.3) 07/01/23 13:41 Absolute Nucleated RBC 0.000 X10*3/uL (0.0-0.012) 07/01/23 13:41 Nucleated RBC % (auto) 0.0 /100WBC (0.0-0.2) 07/01/23 13:41 Hold Purple Top SEE NOTE 07/05/23 05:44 Sodium 137 mmol/L (135-145) 07/05/23 05:44 Potassium 3.3 mmol/L (3.3-5.1) 07/05/23 05:44 Chloride 108 mmol/L (96-108) 07/05/23 05:44 Carbon Dioxide 25 mmol/L (22-29) 07/05/23 05:44 Anion Gap 7 (12-20) L 07/05/23 05:44 BUN 19 mg/dL (9-16) H 07/05/23 05:44 Creatinine 0.59 mg/dL (0.5-1.4) 07/05/23 05:44 Estim Creat Clear Calc 103.4 07/05/23 05:44 Estimated GFR > 60 07/05/23 05:44 Random Glucose 125 mg/dL (60-115) H 07/05/23 05:44 Calcium 8.5 mg/dL (8.4-10.2) 07/05/23 05:44 Magnesium 2.1 mg/dL (1.6-2.6) 07/01/23 13:41 Total Bilirubin 0.4 mg/dL (0.0-1.0) 07/01/23 13:41 Direct Bilirubin 0.2 mg/dL (0.0-0.5) 07/01/23 13:41 AST 25 U/L (5-31) 07/01/23 13:41 ALT 16 U/L (0-31) 07/01/23 13:41 Alkaline Phosphatase 78 U/L (39-117) 07/01/23 13:41 Ammonia 19 umol/L (13-55) 07/01/23 16:02 Total Creatine Kinase 100 U/L (26-140) 07/02/23 09:27 Total Protein 5.7 g/dL (6.5-8.0) L 07/01/23 13:41 Albumin 3.2 g/dL (3.5-5.0) L 07/01/23 13:41 Lipase < 4 U/L (8-78) L 07/01/23 13:41 TSH 1.51 uIU/mL (0.32-4.0) 07/01/23 13:41 Beta HCG, Quant < 2 mIU/mL 07/01/23 13:41 Urine Color Dark Yellow 07/02/23 06:15 Urine Appearance Cloudy 07/02/23 06:15 Urine pH 6.0 (5.0-9.0) 07/02/23 06:15 Ur Specific [place] 1.025 (1.005-1.025) 07/02/23 06:15 Urine Protein Trace mg/dL (Neg-Trace) 07/02/23 06:15 Urine Glucose (UA) Negative mg/dL (Negative) 07/02/23 06:15 Urine Ketones 15 mg/dL (Negative) 07/02/23 06:15 Urine Blood Negative (Negative) 07/02/23 06:15 Urine Nitrite Positive (Negative) H 07/02/23 06:15 Ur Leukocyte Esterase Moderate (2+) (Negative) H 07/02/23 06:15 Urine RBC 0-2 /HPF (0-2) 07/02/23 06:15 Urine WBC 11-20 /HPF (0-5) H 07/02/23 06:15 Ur Squamous Epith Cells 11-20 /HPF (0-2) 07/02/23 06:15 Urine Bacteria 4+ (None Seen) 07/02/23 06:15 Hyaline Casts 3-5 /LPF (0-2) 07/02/23 06:15 Valproic Acid 90.0 mcg/mL (50.0-100.0) 07/01/23 13:41 [place] 0.53 mmol/L (0.60-1.20) L 07/05/23 05:[address] 07/01/23 15:29 IMPRESSION: No acute intracranial pathology. Discharge Plan Discharge Patient Disposition: Xfer Psychiatric Hosp Discharge Diagnosis: lithium toxicity bipolar disorder [facility] - 1 Week Physician,Unknown J [Primary Care Provider] - 1 Week Discharge Medications: Continued multivitamin Tablet 1 tab PO DAILY clonidine HCl 0.1 mg Tablet 0.1 mg PO Q8H PRN (Reason: Hypertension) phenazopyridine 200 mg Tablet 200 mg PO TID PRN (Reason: URINARY DISCOMFORT) clonazepam 1 mg Tablet 1 mg PO DAILY divalproex 500 mg Tablet,Delayed Release (Dr/Ec) 1,000 mg PO BEDTIME quetiapine 100 mg Tablet 100 mg PO BEDTIME PRN (Reason: Insomnia) bisacodyl 10 mg Suppository 10 mg MS DAILY PRN (Reason: Constipation) benztropine 1 mg Tablet 1 mg PO BID nicotine 21 mg/24 hr Patch 24 Hour 1 patch TRANSDERMAL DAILY bisacodyl 5 mg Tablet,Delayed Release (Dr/Ec) 10 mg PO DAILY polyethylene glycol 3350 17 gram/dose Powder 17 g PO DAILY PRN (Reason: Constipation) methylphenidate HCl 18 mg Tablet Extended Release 24hr 18 mg PO DAILY bupropion HCl 150 mg Tablet Extended Release 24 Hr 150 mg PO DAILY buprenorphine-naloxone [Suboxone] 2-0.5 mg Film 1 film BUCCAL DAILY Rx Instructions: place 1 strip/tab under (each) side of tongue buprenorphine-naloxone [Suboxone] 4-1 mg Film 1 film BUCCAL BEDTIME Rx Instructions: place 1 strip/tab under (each) side of tongue topiramate 25 mg Tablet 25 mg PO BID levothyroxine 25 mcg Tablet 25 mcg PO DAILY@0600 diphenhydramine HCl 25 mg Capsule 25 mg PO Q8H PRN (Reason: Anxiety) paliperidone palmitate 234 mg/1.5 mL Syringe 234 mg IM QMONTH acetaminophen 325 mg Tablet 650 mg PO Q6H PRN (Reason: Pain, Mild) melatonin 3 mg Tablet 6 mg PO BEDTIME divalproex 500 mg Tablet,Delayed Release (Dr/Ec) 500 mg PO QAM nicotine (polacrilex) 4 mg Gum 4 mg BUCCAL Q2H PRN (Reason: Smoking Cessation) chlorpromazine 25 mg/mL Solution 50 mg IM Q6H PRN (Reason: Agitation) chlorpromazine 25 mg/mL Solution 50 mg IM TID PRN (Reason: Agitation) zolpidem 5 mg Tablet 5 mg PO BEDTIME chlorpromazine 50 mg Tablet 50 mg PO TID PRN (Reason: Agitation) alum-mag hydroxide-simeth [Mylanta Maximum Strength] 400-400-40 mg/5 mL Suspension 30 ml PO Q6H PRN (Reason: Heartburn) quetiapine 50 mg Tablet 50 mg PO BID ibuprofen 800 mg Tablet 800 mg PO Q8H PRN (Reason: Pain, Moderate) Discharge Orders: Discharge Order (Routine); Ordered 07/06/23 Ordered By: Aston Gifford Diet: Advance to usual diet Activity on Discharge: As tolerated Stand Alone Forms: Patient Portal Discharge page Print Language: Bengali Care Plan Goals: mental health Health Concerns: lithium toxicity bipolar disorder Plan of Treatment: avoid lithium continue other medications return to [facility]
--- NOTE | 2023-07-06 10:38 | MHC.CM.PN ---
Second IMM given 07/05, addressed with pts guardian Shayla VaughnSteffen Arnold. Pt is medically cleared for discharge back to [facility] today at 11am via BLS/[facility]. Section 12 form completed by MD for pts transfer.
[2023-07-06] MEDS: levoFLOXacin 250 MG TABLET PO (10:43)
[2023-07-06 11:32] VITALS: BP 103/68; PULSE 98; RESP 18; TEMP 36.1; O2SAT 95
== END 2023-07-06 12:22 | DRG 92 ==
LOC: HO.ED 16:05 → HO.EDOVER 18:53 → HO.IMC 07-02 07:55
PROVIDERS: Hospitalist; Social Worker; Student in an Organized Health Care Education/Training Program; Admitting Provider Student in an Organized Health Care Education/Training Program; Emergency Provider Emergency Medicine; Visit Provider Family Medicine
DX: G25.3 Myoclonus (principal); F11.20 Opioid dependence, uncomplicated; N39.0 Urinary tract infection, site not specified; F31.9 Bipolar disorder, unspecified; F90.9 Attention-deficit hyperactivity disorder, unspecified type; B96.89 Other specified bacterial agents as the cause of diseases classified elsewhere; T43.595A Adverse effect of other antipsychotics and neuroleptics, initial encounter; Z87.891 Personal history of nicotine dependence; Z79.890 Hormone replacement therapy; Z79.899 Other long term (current) drug therapy
CPT/HCPCS: 36415; 70450; 80048; 80076; 80164; 80178; 81001; 82140; 82550; 83690; 83735; 84443; 84702; 85025; 87086; 87088; 87186; 92950; 93005; 99285; J1650; J2060; S9485

== ENCOUNTER → 2023-07-01 13:25 | Outpatient (BNV) | payer OTHER, SELFPAY | PROVIDERS: Admitting Provider Student in an Organized Health Care Education/Training Program; Emergency Provider Emergency Medicine; Visit Provider Internal Medicine Cardiovascular Disease | DX: R00.0 Tachycardia, unspecified (principal) | CPT/HCPCS: 93010 ==

== ENCOUNTER → 2023-07-01 18:44 | Outpatient (BNV) | payer OTHER, SELFPAY | PROVIDERS: Admitting Provider Student in an Organized Health Care Education/Training Program; Emergency Provider Emergency Medicine; Visit Provider Student in an Organized Health Care Education/Training Program | DX: T56.891S Toxic effect of other metals, accidental (unintentional), sequela (principal); T50.905A Adverse effect of unspecified drugs, medicaments and biological substances, initial encounter; F31.9 Bipolar disorder, unspecified; N39.0 Urinary tract infection, site not specified | CPT/HCPCS: 99223; 99232; 99233; 99239 ==

== ENCOUNTER → 2023-07-01 18:44 | Outpatient (BNV) | payer OTHER, SELFPAY | PROVIDERS: Admitting Provider Student in an Organized Health Care Education/Training Program; Emergency Provider Emergency Medicine; Visit Provider Internal Medicine Nephrology | DX: T43.595S Adverse effect of other antipsychotics and neuroleptics, sequela (principal) | CPT/HCPCS: 99222 ==

== ENCOUNTER → 2023-07-01 18:44 | Outpatient (BNV) | payer OTHER, SELFPAY | PROVIDERS: Admitting Provider Student in an Organized Health Care Education/Training Program; Emergency Provider Emergency Medicine; Visit Provider Social Worker | DX: F25.0 Schizoaffective disorder, bipolar type (principal); T56.891A Toxic effect of other metals, accidental (unintentional), initial encounter; T56.891S Toxic effect of other metals, accidental (unintentional), sequela | CPT/HCPCS: 99222; 99232; 99233 ==